=== PATIENT | male | born 1955 | race Caucasian/White ===

== ENCOUNTER 2018-02-25 12:47 | Emergency (ER) | payer SELFPAY ==
[~2018-02-25] VITALS: Ht 177.8 cm; Wt 93.9 kg
[~2018-02-25 12:47] MED LIST: MOME15CR TP; NAPR220C11 PO; PRD20T PO
--- OUTSIDE RECORDS SUMMARY | 2018-02-25 12:51 | XMS REPORT ---
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
--- OUTSIDE RECORDS SUMMARY | 2018-02-25 12:51 | XMS REPORT ---
Author Author GLORIA GRANADOS [facility] Address [address] [place] [address] Care Team Providers Care Certified Prosthetist Vice President Name Role Phone GLORIA GRANADOS Unavailable PROBLEMS Type Condition ICD9-CM Code [id number] Code Onset Dates Condition Status SNOMED Code Problem Bronchitis J40 Active 60489788 Problem Fatigue, unspecified type R53.83 Active 46744219 Problem Depression F32.9 Active 10607325 Problem Male reproductive system disorder N50.9 Active 894456112 Problem Essential hypertension I10 Active 60834031 Problem Arthritis M19.90 Active 2265019 ALLERGIES No Information SOCIAL HISTORY Never Assessed PLAN OF CARE VITAL SIGNS MEDICATIONS Medication Instructions Dosage Frequency Start Date End Date Duration Status Lisinopril 10 mg Orally Once a day take 1 tablet by Oral route 1 time per day Take in am 24h Aug, 30 days Active RESULTS No Results PROCEDURES No Known procedures IMMUNIZATIONS No Known Immunizations MEDICAL (GENERAL) HISTORY Type Description Date Medical History hypertension Medical History Hypertension Surgical History orthopedic surgery left thumb rebuilt Surgical History shoulder arthroscopy 05/2015 Hospitalization History for surgeries only
--- OUTSIDE RECORDS SUMMARY | 2018-02-25 12:51 | XMS REPORT ---
Author Author ALFRED JERONIMO [facility] Address [address] [place] [address] Care Team Providers Care Diathermy Equipment Repairer Name Role Phone ALFRED JERONIMO Unavailable PROBLEMS Type Condition ICD9-CM Code AMY78-[id number] Code Onset Dates Condition Status SNOMED Code Problem Bronchitis J40 Active 46639937 Problem Fatigue, unspecified type R53.83 Active 98617727 Problem Depression F32.9 Active 26415340 Problem Male reproductive system disorder N50.9 Active 426329760 Problem Essential hypertension I10 Active 00562202 Problem Arthritis M19.90 Active 3756459 ALLERGIES Substance Reaction Event Type Date Status Sulfamethoxazole-Trimethoprim Unknown Drug Allergy November, Active Penicillin V Potassium Unknown Drug Allergy November, Active Erythromycin Unknown Drug Allergy November, Active SOCIAL HISTORY Never Assessed PLAN OF CARE VITAL SIGNS Height 70 in 2016-11-28 Weight 205.3 lbs 2016-11-28 Temperature 98.5 degrees Fahrenheit 2016-11-28 Heart Rate 100 bpm 2016-11-28 Respiratory Rate 2016-11-28 BMI 29.45 kg/m2 2016-11-28 Blood pressure systolic 142 mmHg 2016-11-28 Blood pressure diastolic 86 mmHg 2016-11-28 MEDICATIONS Medication Instructions Dosage Frequency Start Date End Date Duration Status Lisinopril 10 MG Orally Once a day take 1 tablet by Oral route 1 time per day Take in am 24h 90 days Active Promethazine-Codeine 6.25-10 MG/5ML Orally every 6 hrs 5 ml as needed 6h November, Active Naproxen 500 mg Orally every 12 hrs 1 tablet as needed 12h November, Active Indomethacin 50 mg Orally Twice a day 1 capsule with food or milk 12h Sep, Feb, 30 day(s) Active Clobetasol Propionate 0.05 % Externally Twice a day 1 application to affected area 12h Sep, Active Doxycycline Hyclate 100 mg Orally every 12 hrs 1 capsule 12November, Dec, 10 days Active RESULTS No Results PROCEDURES No Known procedures IMMUNIZATIONS No Known Immunizations MEDICAL (GENERAL) HISTORY Type Description Date Medical History hypertension Medical History Hypertension Surgical History orthopedic surgery left thumb rebuilt Surgical History shoulder arthroscopy 05/2015 Hospitalization History for surgeries only
--- OUTSIDE RECORDS SUMMARY | 2018-02-25 12:51 | XMS REPORT ---
Author GLORIA Mullins [facility] eClinical[employer] Address Unknown Phone Unavailable Care Team Providers Care Car Examiner Name Role Phone GLORIA GRANADOS CP Unavailable Allergies, Adverse Reactions, Alerts Substance Reaction Event Type Sulfamethoxazole-Trimethoprim Info Not Available Drug Allergy Penicillin V Potassium Info Not Available Drug Allergy Erythromycin Info Not Available Drug Allergy Problems Problem Type Condition Code Onset Dates Condition Status Problem Arthritis M19.90 Active Problem Depression F32.9 Active Problem Essential hypertension I10 Active Assessment Depression F32.9 Active Assessment Essential hypertension I10 Active Assessment Arthritis M19.90 Active Medications Medication Code System Code Instructions Start Date End Date Status Dosage Naproxen [facility] [address]-95 500 MG Orally every 12 hrs prn Jul 09, 2015 1 tablet as needed Hydrocodone-Acetaminophen [facility] [address]-91 7.5-325 MG Orally every 6 hrs 1 tablet as needed Remeron SolTab [facility] [address]-25 15 MG Orally Once a day at bedtime December 1 tablet on the tongue and allow to dissolve before bedtime in the evening Lisinopril [facility] [address]-99 10 MG Orally Once a day Sep 01, 2014 take 1 tablet by Oral route 1 time per day Take in am Tylenol/Codeine #[address] [facility] [address]-75 300-30 MG Orally every 6 hrs 1 tablet as needed Procedures Procedure Coding System Code Date LIPID PANEL CPT-4 53228 Jul 09, 2015 Office Visit, Est Pt., Level 3 CPT-4 89318 Jul 09, 2015 COMPREHEN METABOLIC PANEL CPT-4 28491 Jul 09, 2015 VENIPUNCT, ROUTINE* CPT-4 95751 Jul 09, 2015 Vital Signs Date/Time: Jul 09, 2015 Temperature 97.4 F Weight 188.9 lbs Height 70 in BMI 27.10 Index Blood Pressure Diastolic 86 mmHg Blood Pressure Systolic 132 mmHg Cardiac Monitoring Heart Rate 86 bpm Results Name Result Date Reference Range Unit Abnormality Flag LIPID PANEL ----LDL Cholesterol Calc 113 72222826 0-99 mg/dL H ----Cholesterol, Total 194 19035827 100-199 mg/dL ----Triglycerides 149 11655970 0-149 mg/dL ----HDL Cholesterol 51 53201101 >39 mg/dL ----VLDL Cholesterol Juan 30 75159715 5-40 mg/dL CMP ----Sodium, Serum 139 79493278 134-144 mmol/L ----BUN/Creatinine Ratio 18 53006609 10-22 ----Chloride, Serum 98 30842178 97-108 mmol/L ----Potassium, Serum 4.5 59993890 3.5-5.2 mmol/L ----Calcium, Serum 9.9 90836530 8.6-10.2 mg/dL ----Protein, Total, Serum 7.6 30745323 6.0-8.5 g/dL ----Carbon Dioxide, Total 26 67537292 18-29 mmol/L ----A/G Ratio 1.5 74897460 1.1-2.5 ----eGFR If NonAfricn Am 96 26887511 >59 mL/min/1.73 ----Bilirubin, Total 0.3 13891008 0.0-1.2 mg/dL ----eGFR If Africn Am 111 29313141 >59 mL/min/1.73 ----BUN 15 43389547 8-27 mg/dL ----Albumin, Serum 4.6 12169979 3.6-4.8 g/dL ----Globulin, Total 3.0 82625881 1.5-4.5 g/dL ----Creatinine, Serum 0.82 18288653 0.76-1.27 mg/dL ----ALT (SGPT) 35 86208898 0-44 IU/L ----Glucose, Serum 87 64418739 65-99 mg/dL ----Alkaline Phosphatase, S 96 97119575 39-117 IU/L ----AST (SGOT) 24 [id number] 0-40 IU/L Summary Purpose eClinicalWorks Submission
--- OUTSIDE RECORDS SUMMARY | 2018-02-25 12:51 | XMS REPORT ---
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 Active 395500487 Problem Essential hypertension I10 Active 46036460 Problem Arthritis M19.90 Active 9599580 ALLERGIES No Information ENCOUNTERS Encounter Location Date Diagnosis [facility] [address] [address] Mar, Bronchitis J40 [facility] [address] [address] Feb, Essential hypertension I10 and Bronchitis J40 [facility] [address] [address] Dec, [facility] [address] [address] November, Acute non-recurrent maxillary sinusitis J01.00 [facility] [address] [address] Sep, [facility] [address] [address] Sep, Essential hypertension I10 ; Arthritis M19.90 ; Depression F32.9 ; Fatigue, unspecified type R53.83 ; Eczema, dyshidrotic L30.1 and Chronic cough R05 [facility] [address] [address] 13 Aug, 2016 Essential hypertension I10 [facility] [id number] [place] [address] Jun, Essential hypertension I10 ; Arthritis M19.90 and Depression F32.9 [facility] [id number] [place] [address] 18 Mar, 2015 Sinusitis 473.9 [facility] [id number] [place] [address] 30 Dec, 2014 Eczema 692.9 ; Hypertension 401.9 and Anger 799.29 [facility] [id number] [place] [address] Dec, Contact dermatitis 692.9 [facility] [id number] [place] [address] 14 Oct, 2014 [facility] [id number] [place] [address] Oct, [facility] [id number] [place] [address] Aug, [facility] [id number] [place] [address] Aug, [facility] [address] [place] [address] May, [facility] [id number] [place] [address] May, [facility] [address] [place] [address] Apr, [facility] [id number] [place] [address] Apr, [facility] [address] [address] Mar, [facility] [id number] [place] [address] Mar, [facility] [place] [facility] [address] [id number] [place] [address] 04 Mar, 2013 [facility] [place] [facility] [address] [id number] [place] [address] 04 Mar, 2013 [facility] [place] [facility] [address] [id number] [place] [address] 03 Mar, 2013 [facility] [place] [facility] [address] [id number] [place] [address] 03 Mar, 2013 [facility] [place] [facility] [address] [id number] [place] [address] Mar, [facility] [place] [facility] [address] [id number] [place] [address] Mar, [facility] [place] [facility] [address] [id number] [place] [address] Jan, [facility] [place] [facility] [address] [id number] [place] [address] Jan, [facility] [place] [facility] [address] [id number] [place] [address] November, [facility] [place] [facility] [address] [id number] [place] [address] November, [facility] [place] [facility] [address] [id number] [place] [address] 15 Oct, 2013 [facility] [place] [facility] [address] [id number] [place] [address] 15 Oct, 2013 [facility] [place] [facility] [address] [id number] [place] [address] Oct, [facility] [place] [facility] [address] [id number] [place] [address] Oct, [facility] [place] [facility] [address] [id number] [place] [address] 10 Oct, 2013 [facility] [place] [facility] [address] [id number] [place] [address] 10 Oct, 2013 [facility] [place] [facility] [address] [id number] [place] [address] Oct, [facility] [place] [facility] [address] [id number] [place] [address] Oct, [facility] [place] [facility] [address] [id number] [place] [address] Oct, [facility] [place] [facility] [address] [id number] [place] [address] Oct, [facility] [place] [facility] [address] [id number] [place] [address] Sep, [facility] [place] [facility] [address] [id number] [place] [address] Sep, [facility] [place] [facility] [address] [id number] [place] [address] Sep, [facility] [place] [facility] [address] [id number] [place] [address] Sep, [facility] [place] [facility] [address] [id number] [place] [address] Sep, [facility] [place] [facility] [address] [facility] [id number] [place] [address] Sep, [facility] [place] [facility] [address] [id number] [place] [address] Sep, [facility] [place] [facility] [address] [id number] [place] [address] Sep, [facility] [place] [facility] [address] [id number] [place] [address] Sep, [facility] [place] [facility] [address] [id number] [place] [address] Sep, [facility] [place] [facility] [address] [id number] [place] [address] Aug, [facility] [place] [facility] [address] [id number] [place] [address] 28 Aug, 2013 [facility] [place] [facility] [address] [id number] [place] [address] 17 Mar, 2012 [facility] [place] [facility] [address] [id number] [place] [address]- [address] 16 Mar, 2012 [facility] [place] [facility] [address] [id number] [place] [address] 13 Mar, 2012 [facility] [place] [facility] [address] [id number] [place] [address]- [address] 05 Mar, 2012 [facility] [place] [facility] [address] [id number] [place] [address] 04 Mar, 2013 [facility] [address] [id number] [place] [address] Dec, [facility] [place] [facility] [address] [id number] [place] [address] Sep, [facility] [place] [facility] [address] [id number] [place] [address] Apr, [facility] [place] [facility] [address] [id number] [place] [address]- [address] Apr, [facility] [place] [facility] [address] [id number] [place] [address] Apr, [facility] [place] [facility] [address] [id number] [place] [address]- [address] Apr, [facility] [place] [facility] [address] [id number] [place] [address] November, [facility] [place] [facility] [address] [id number] [place] [address] November, [facility] [place] [facility] [address] [id number] [place] [address] Oct, [facility] [place] [facility] [address] [id number] [place] [address] November, [facility] [address] [facility] [id number] [address] Oct, [facility] [address] [facility] [id number] [address] Apr, [facility] [address] [facility] [id number] [address] Apr, [facility] [address] [facility] [id number] [address] Dec, IMMUNIZATIONS No Known Immunizations SOCIAL HISTORY Never Assessed REASON FOR VISIT Requesting referral PLAN OF CARE VITAL SIGNS MEDICATIONS No Known Medications RESULTS No Results PROCEDURES No Known procedures INSTRUCTIONS MEDICATIONS ADMINISTERED No Known Medications MEDICAL (GENERAL) HISTORY Type Description Date Medical History hypertension Medical History Hypertension Surgical History orthopedic surgery left thumb rebuilt Surgical History shoulder arthroscopy 05/2015 Hospitalization History for surgeries only
--- OUTSIDE RECORDS SUMMARY | 2018-02-25 12:51 | XMS REPORT ---
Author Author GLORIA GRANADOS [facility] Address [address] [place] [address] Care Team Providers Care Documentation Consultant Name Role Phone GLORIA GRANADOS Unavailable PROBLEMS Type Condition ICD9-CM Code [id number] Code Onset Dates Condition Status SNOMED Code Problem Bronchitis J40 Active 42127051 Problem Fatigue, unspecified type R53.83 Active 07222535 Problem Depression F32.9 Active 00388600 Problem Male reproductive system disorder N50.9 Active 530610955 Problem Essential hypertension I10 Active 40107121 Problem Arthritis M19.90 Active 3137807 ALLERGIES Substance Reaction Event Type Date Status Sulfamethoxazole-Trimethoprim Unknown Drug Allergy Sep, Active Penicillin V Potassium Unknown Drug Allergy Sep, Active Erythromycin Unknown Drug Allergy Sep, Active SOCIAL HISTORY Never Assessed PLAN OF CARE Activity Details Follow Up pending lab and xray Reason: VITAL SIGNS Height 70 in 2016-09-07 Weight 205.4 lbs 2016-09-07 Temperature 98.1 degrees Fahrenheit 2016-09-07 Heart Rate 92 bpm 2016-09-07 Respiratory Rate 22 2016-09-07 BMI 29.47 kg/m2 2016-09-07 Blood pressure systolic 144 mmHg 2016-09-07 Blood pressure diastolic 85 mmHg 2016-09-07 MEDICATIONS Medication Instructions Dosage Frequency Start Date End Date Duration Status Remeron SolTab 15 MG Orally Once a day at bedtime 1 tablet on the tongue and allow to dissolve before bedtime in the evening 30 day(s) Active Indomethacin 50 mg Orally Twice a day 1 capsule with food or milk h Sep, Feb, 30 day(s) Active Clobetasol Propionate 0.05 % Externally Twice a day 1 application to affected area 12h Sep, Active Lisinopril 10 MG Orally Once a day take 1 tablet by Oral route 1 time per day Take in am 24h 90 days Active RESULTS Name Result Date Reference Range TESTOSTERONE, FREE AND TOTAL 2016-09-07 Testosterone, Serum [id number] Comment: TSH 2016-09-07 TSH 1.950 0.450-4.500 CBC 2016-09-07 WBC 10.4 3.4-10.8 RBC 5.03 4.14-5.80 Hemoglobin 15.9 12.6-17.7 Hematocrit 47.0 37.5-51.0 MCV 93 79-97 MCH 31.6 26.6-33.0 MCHC 33.8 31.5-35.7 RDW 13.5 12.3-15.4 Platelets 283 150-379 Neutrophils 67 Lymphs 25 Monocytes 7 Eos 1 Basos 0 Immature Cells Neutrophils (Absolute) 6.8 1.4-7.0 Lymphs (Absolute) 2.6 0.7-3.1 Monocytes(Absolute) 0.8 0.1-0.9 Eos (Absolute) 0.1 0.0-0.4 Baso (Absolute) 0.0 0.0-0.2 Immature Granulocytes 0 Immature Grans (Abs) 0.0 0.0-0.1 NR Hematology Comments: CMP 2016-09-07 Glucose, Serum 75 65-99 BUN 10 8-27 Creatinine, Serum 1.00 0.76-1.27 eGFR If NonAfricn Am 81 >59 eGFR If Africn Am 93 >59 BUN/Creatinine Ratio 10 10-22 Sodium, Serum 139 134-144 Potassium, Serum 4.5 3.5-5.2 Chloride, Serum 98 96-106 Carbon Dioxide, Total 23 18-29 Calcium, Serum 9.7 8.6-10.2 Protein, Total, Serum 7.8 6.0-8.5 Albumin, Serum 4.7 3.6-4.8 Globulin, Total 3.1 1.5-4.5 A/G Ratio 1.5 1.1-2.5 Bilirubin, Total 0.4 0.0-1.2 Alkaline Phosphatase, S 99 39-117 AST (SGOT) 25 0-40 ALT (SGPT) 29 0-44 TESTOSTERONE, FREE AND TOTAL 2016-09-07 Testosterone, Serum [phone] Comment: Free Testosterone(Direct) 8.6 6.6-18.1 TSH 2016-09-07 TSH 1.950 0.450-4.500 CBC 2016-09-07 WBC 10.4 3.4-10.8 RBC 5.03 4.14-5.80 Hemoglobin 15.9 12.6-17.7 Hematocrit 47.0 37.5-51.0 MCV 93 79-97 MCH 31.6 26.6-33.0 MCHC 33.8 31.5-35.7 RDW 13.5 12.3-15.4 Platelets 283 150-379 Neutrophils 67 Lymphs 25 Monocytes 7 Eos 1 Basos 0 Neutrophils (Absolute) 6.8 1.4-7.0 Lymphs (Absolute) 2.6 0.7-3.1 Monocytes(Absolute) 0.8 0.1-0.9 Eos (Absolute) 0.1 0.0-0.4 Baso (Absolute) 0.0 0.0-0.2 Immature Granulocytes 0 Immature Grans (Abs) 0.0 0.0-0.1 CMP 2016-09-07 Glucose, Serum 75 65-99 BUN 10 8-27 Creatinine, Serum 1.00 0.76-1.27 eGFR If NonAfricn Am 81 >59 eGFR If Africn Am 93 >59 BUN/Creatinine Ratio 10 10-22 Sodium, Serum 139 134-144 Potassium, Serum 4.5 3.5-5.2 Chloride, Serum 98 96-106 Carbon Dioxide, Total 23 18-29 Calcium, Serum 9.7 8.6-10.2 Protein, Total, Serum 7.8 6.0-8.5 Albumin, Serum 4.7 3.6-4.8 Globulin, Total 3.1 1.5-4.5 A/G Ratio 1.5 1.1-2.5 Bilirubin, Total 0.4 0.0-1.2 Alkaline Phosphatase, S 99 39-117 AST (SGOT) 25 0-40 ALT (SGPT) 29 0-44 Xray : Chest (IN HOUSE) 2016-09-07 PROCEDURES Procedure Date Ordered Result Body Site COMPLETE CBC W/AUTO DIFF WBC September 07, 2016 ASSAY THYROID STIM HORMONE September 07, 2016 VENIPUNCT, ROUTINE* September 07, 2016 ASSAY OF TESTOSTERONE September 07, 2016 ASSAY OF TOTAL TESTOSTERONE September 07, 2016 CHEST X-RAY September 07, 2016 COMPREHEN METABOLIC PANEL September 07, 2016 IMMUNIZATIONS No Known Immunizations MEDICAL (GENERAL) HISTORY Type Description Date Medical History hypertension Medical History Hypertension Surgical History orthopedic surgery left thumb rebuilt Surgical History shoulder arthroscopy 05/2015 Hospitalization History for surgeries only
--- OUTSIDE RECORDS SUMMARY | 2018-02-25 12:52 | XMS REPORT | Continuity of Care Document ---
Author Author Replaced By [facility] Address Unknown Phone Unavailable Allergies Active Description Code Type Severity Reaction Onset Reported/Identified Relationship to Patient Clinical Status Yes erythromycin Drug Allergy N/ A N/A 09/02/2008 Yes Penicillins Drug Allergy N/A N/A 09/02/2008 Yes erythromycin Drug Allergy 09/02/2008 Yes Penicillins Drug Allergy 09/02/2008 Yes Penicillins [id number] Drug Allergy Severe COMA 01/28/2011 Yes erythromycin base [id number] Drug Allergy Moderate TONGUE SWELLING 2010 Yes Sulfa (Sulfonamide Antibiotics) [id number] Drug Allergy Mild HIVES 2010 Medications There is no data. Problems Date Dx Coded Attending Type Code Diagnosis Diagnosed By 01/22/2008 380.10 OTITIS EXTERNA - RIGHT EAR 01/22/2008 692.9 DERMATITIS 01/22/2008 727.43 GANGLION UNSPECIFIED 01/22/2008 380.10 OTITIS EXTERNA - RIGHT EAR 01/22/2008 692.9 DERMATITIS 01/22/2008 727.43 GANGLION UNSPECIFIED 01/22/2008 380.10 OTITIS EXTERNA - RIGHT EAR 01/22/2008 692.9 DERMATITIS 01/22/2008 727.43 GANGLION UNSPECIFIED 01/22/2008 SAKINA MACIEL APRN R 380.10 OTITIS EXTERNA - RIGHT EAR 01/22/2008 SAKINA MACIEL APRN R 692.9 DERMATITIS 01/22/2008 SAKINA MACIEL APRN R 727.43 GANGLION UNSPECIFIED 01/22/2008 OZZIE BONE DO 380.10 OTITIS EXTERNA - RIGHT EAR 01/22/2008 OZZIE BONE DO 692.9 DERMATITIS 01/22/2008 OZZIE BONE DO 727.43 GANGLION UNSPECIFIED 01/22/2008 SAKINA MACIEL APRN R 380.10 OTITIS EXTERNA - RIGHT EAR 01/22/2008 SAKINA MACIEL APRN R 692.9 DERMATITIS 01/22/2008 JANELL BAGGAGE CLERK, SAKINA R 727.43 GANGLION UNSPECIFIED 01/22/2008 JANELL BAGGAGE CLERK, SAKINA R 380.10 OTITIS EXTERNA - RIGHT EAR 01/22/2008 JANELL BAGGAGE CLERK, SAKINA R 692.9 DERMATITIS 01/22/2008 JANELL BAGGAGE CLERK, SAKINA R 727.43 GANGLION UNSPECIFIED 01/22/2008 RAJOTTE BAGGAGE CLERK, AZEEM A 380.10 OTITIS EXTERNA - RIGHT EAR 01/22/2008 RAJOTTE BAGGAGE CLERK, AZEEM A 692.9 DERMATITIS 01/22/2008 RAJOTTE BAGGAGE CLERK, AZEEM A 727.43 GANGLION UNSPECIFIED 01/22/2008 MADL BAGGAGE CLERK, GLORIA L 380.10 OTITIS EXTERNA - RIGHT EAR 01/22/2008 MADL BAGGAGE CLERK, GLORIA L 692.9 DERMATITIS 01/22/2008 MADL BAGGAGE CLERK, GLORIA L 727.43 GANGLION UNSPECIFIED 01/22/2008 MADL BAGGAGE CLERK, GLORIA L 380.10 OTITIS EXTERNA - RIGHT EAR 01/22/2008 MADL BAGGAGE CLERK, GLORIA L 692.9 DERMATITIS 01/22/2008 MADL BAGGAGE CLERK, GLORIA L 727.43 GANGLION UNSPECIFIED 01/22/2008 JANELL BAGGAGE CLERK, SAKINA R 380.10 OTITIS EXTERNA - RIGHT EAR 01/22/2008 JANELL BAGGAGE CLERK, SAKINA R 692.9 DERMATITIS 01/22/2008 JANELL BAGGAGE CLERK, SAKINA R 727.43 GANGLION UNSPECIFIED 03/11/2008 473.9 SINUSITIS ( CHRONIC) 03/11/2008 473.9 SINUSITIS ( CHRONIC) 03/11/2008 473.9 SINUSITIS ( CHRONIC) 03/11/2008 JANELL BAGGAGE CLERK, SAKINA R 473.9 SINUSITIS (CHRONIC) 03/11/2008 OZZIE BONE DO 473.9 SINUSITIS (CHRONIC) 03/11/2008 JANELL BAGGAGE CLERK, SAKINA R 473.9 SINUSITIS (CHRONIC) 03/11/2008 JANELL BAGGAGE CLERK, SAKINA R 473.9 SINUSITIS (CHRONIC) 03/11/2008 RAJOTTE BAGGAGE CLERK, AZEEM A 473.9 SINUSITIS (CHRONIC) 03/11/2008 MADL BAGGAGE CLERK, GLORIA L 473.9 SINUSITIS (CHRONIC) 03/11/2008 MADL BAGGAGE CLERK, GLORIA L 473.9 SINUSITIS (CHRONIC) 03/11/2008 JANELL BAGGAGE CLERK, SAKINA R 473.9 SINUSITIS (CHRONIC) 09/02/2008 729.5 pain in the hands 09/02/2008 729.5 pain in the hands 09/02/2008 729.5 pain in the hands 09/02/2008 JANELL BAGGAGE CLERK, SAKINA R 729.5 pain in the hands 09/02/2008 BONE DO, OZZIE K 729.5 pain in the hands 09/02/2008 JANELL BAGGAGE CLERK, SAKINA R 729.5 pain in the hands 09/02/2008 JANELL BAGGAGE CLERK, SAKINA R 729.5 pain in the hands 09/02/2008 RAJOTTE BAGGAGE CLERK, AZEEM A 729.5 pain in the hands 09/02/2008 MADL BAGGAGE CLERK, GLORIA L 729.5 pain in the hands 09/02/2008 MADL BAGGAGE CLERK, GLORIA L 729.5 pain in the hands 09/02/2008 JANELL BAGGAGE CLERK, SAKINA R 729.5 pain in the hands 12/22/2008 780.2 SYNCOPE AND COLLAPSE 12/22/2008 780.2 SYNCOPE AND COLLAPSE 12/22/2008 780.2 SYNCOPE AND COLLAPSE 12/22/2008 JANELL BAGGAGE CLERK, SAKINA R 780.2 SYNCOPE AND COLLAPSE 12/22/2008 BONE DO, OZZIE K 780.2 SYNCOPE AND COLLAPSE 12/22/2008 JANELL BAGGAGE CLERK, SAKINA R 780.2 SYNCOPE AND COLLAPSE 12/22/2008 JANELL BAGGAGE CLERK, SAKINA R 780.2 SYNCOPE AND COLLAPSE 12/22/2008 TOBYE BAGGAGE CLERK, AZEEM A 780.2 SYNCOPE AND COLLAPSE 12/22/2008 MADL BAGGAGE CLERK, GLORIA L 780.2 SYNCOPE AND COLLAPSE 12/22/2008 MADL BAGGAGE CLERK, GLORIA L 780.2 SYNCOPE AND COLLAPSE 12/22/2008 JANELL BAGGAGE CLERK, SAKINA R 780.2 SYNCOPE AND COLLAPSE 02/10/2009 692.6 CONTACT DERMATITIS DUE TO PLANTS POISON JOSE 02/10/2009 780.4 VERTIGO 02/10/2009 692.6 CONTACT DERMATITIS DUE TO PLANTS POISON JOSE 02/10/2009 780.4 VERTIGO 02/10/2009 692.6 CONTACT DERMATITIS DUE TO PLANTS POISON JOSE 02/10/2009 780.4 VERTIGO 02/10/2009 JANELL BAGGAGE CLERK, SAKINA R 692.6 CONTACT DERMATITIS DUE TO PLANTS POISON JOSE 02/10/2009 JANELL BAGGAGE CLERK, SAKINA R 780.4 VERTIGO 02/10/2009 BONE DO, OZZIE K 692.6 CONTACT DERMATITIS DUE TO PLANTS POISON JOSE 02/10/2009 BONE DO, OZZIE K 780.4 VERTIGO 02/10/2009 JANELL BAGGAGE CLERK, SAKINA R 692.6 CONTACT DERMATITIS DUE TO PLANTS POISON JOSE 02/10/2009 JANELL ROBERTN, SAKINA R 780.4 VERTIGO 02/10/2009 JANELL BAGGAGE CLERK, SAKINA R 692.6 CONTACT DERMATITIS DUE TO PLANTS POISON JOSE 02/10/2009 JANELL ROBERTN, SAKINA R 780.4 VERTIGO 02/10/2009 TOBYE LEVON AZEEM A 692.6 CONTACT DERMATITIS DUE TO PLANTS POISON JOSE 02/10/2009 TOBYE LEVON AZEEM A 780.4 VERTIGO 02/10/2009 INEZL BAGGAGE CLERK, GLORIA L 692.6 CONTACT DERMATITIS DUE TO PLANTS POISON JOSE 02/10/2009 MADL BAGGAGE CLERK, GLORIA L 780.4 VERTIGO 02/10/2009 MADL BAGGAGE CLERK, GLORIA L 692.6 CONTACT DERMATITIS DUE TO PLANTS POISON JOSE 02/10/2009 MADL BAGGAGE CLERK, GLORIA L 780.4 VERTIGO 02/10/2009 JANELL DOS SANTOS, SAKINA R 692.6 CONTACT DERMATITIS DUE TO PLANTS POISON JOSE 02/10/2009 JANELL DOS SANTOS, SAKINA R 780.4 VERTIGO 04/30/2009 995.3 ALLERGY UNSPECIFIED NOT ELSEWHERE CLASSIFIED 04/30/2009 995.3 ALLERGY UNSPECIFIED NOT ELSEWHERE CLASSIFIED 04/30/2009 995.3 ALLERGY UNSPECIFIED NOT ELSEWHERE CLASSIFIED 04/30/2009 JANELL DOS SANTOS SAKINA R 995.3 ALLERGY UNSPECIFIED NOT ELSEWHERE CLASSIFIED 04/30/2009 BONE DO, OZZIE K 995.3 ALLERGY UNSPECIFIED NOT ELSEWHERE CLASSIFIED 04/30/2009 JANELL DOS SANTOS SAKINA R 995.3 ALLERGY UNSPECIFIED NOT ELSEWHERE CLASSIFIED 04/30/2009 JANELL DOS SANTOS SAKINA R 995.3 ALLERGY UNSPECIFIED NOT ELSEWHERE CLASSIFIED 04/30/2009 REJI DOS SANTOS AZEEM A 995.3 ALLERGY UNSPECIFIED NOT ELSEWHERE CLASSIFIED 04/30/2009 MADL BAGGAGE CLERK, GLORIA L 995.3 ALLERGY UNSPECIFIED NOT ELSEWHERE CLASSIFIED 04/30/2009 MADL BAGGAGE CLERK, GLORIA L 995.3 ALLERGY UNSPECIFIED NOT ELSEWHERE CLASSIFIED 04/30/2009 JANELL BAGGAGE CLERK, SAKINA R 995.3 ALLERGY UNSPECIFIED NOT ELSEWHERE CLASSIFIED 05/05/2009 300.02 GENERALIZED ANXIETY DISORDER 05/05/2009 696.1 PSORIASIS 05/05/2009 780.52 INSOMNIA UNSPECIFIED 05/05/2009 300.02 GENERALIZED ANXIETY DISORDER 05/05/2009 696.1 PSORIASIS 05/05/2009 780.52 INSOMNIA UNSPECIFIED 05/05/2009 300.02 GENERALIZED ANXIETY DISORDER 05/05/2009 696.1 PSORIASIS 05/05/2009 780.52 INSOMNIA UNSPECIFIED 05/05/2009 JANELL BAGGAGE CLERK, SAKINA R 300.02 GENERALIZED ANXIETY DISORDER 05/05/2009 JANELL BAGGAGE CLERK, SAKINA R 696.1 PSORIASIS 05/05/2009 JANELL BAGGAGE CLERK, SAKINA R 780.52 INSOMNIA UNSPECIFIED 05/05/2009 BONE DO, OZZIE K 300.02 GENERALIZED ANXIETY DISORDER 05/05/2009 BONE DO, OZZIE K 696.1 PSORIASIS 05/05/2009 BONE DO, OZZIE K 780.52 INSOMNIA UNSPECIFIED 05/05/2009 JANELL BAGGAGE CLERK, SAKINA R 300.02 GENERALIZED ANXIETY DISORDER 05/05/2009 JANELL BAGGAGE CLERK, SAKINA R 696.1 PSORIASIS 05/05/2009 JANELL BAGGAGE CLERK, SAKINA R 780.52 INSOMNIA UNSPECIFIED 05/05/2009 JANELL BAGGAGE CLERK, SAKINA R 300.02 GENERALIZED ANXIETY DISORDER 05/05/2009 JANELL BAGGAGE CLERK, SAKINA R 696.1 PSORIASIS 05/05/2009 JANELL BAGGAGE CLERK, SAKINA R 780.52 INSOMNIA UNSPECIFIED 05/05/2009 RAJOTTE BAGGAGE CLERK, AZEEM A 300.02 GENERALIZED ANXIETY DISORDER 05/05/2009 RAJOTTE BAGGAGE CLERK, AZEEM A 696.1 PSORIASIS 05/05/2009 RAJOTTE BAGGAGE CLERK, AZEEM A 780.52 INSOMNIA UNSPECIFIED 05/05/2009 MADL BAGGAGE CLERK, GLORIA L 300.02 GENERALIZED ANXIETY DISORDER 05/05/2009 MADL BAGGAGE CLERK, GLORIA L 696.1 PSORIASIS 05/05/2009 MADL BAGGAGE CLERK, GLORIA L 780.52 INSOMNIA UNSPECIFIED 05/05/2009 MADL BAGGAGE CLERK, GLORIA L 300.02 GENERALIZED ANXIETY DISORDER 05/05/2009 DARWIN DOS SANTOS, GLORIA L 696.1 PSORIASIS 05/05/2009 DARWIN BAGGAGE CLERKVIPUL RobledoA L 780.52 INSOMNIA UNSPECIFIED 05/05/2009 JANELL DOS SANTOS SAKINA R 300.02 GENERALIZED ANXIETY DISORDER 05/05/2009 JANELL DOS SANTOS, SAKINA R 696.1 PSORIASIS 05/05/2009 JANELL DOS SANTOS SAKINA R 780.52 INSOMNIA UNSPECIFIED 10/22/2009 388.70 EARACHE RIGHT EAR 10/22/2009 799.81 changed sexual interest (libido): decreased 10/22/2009 388.70 EARACHE RIGHT EAR 10/22/2009 799.81 changed sexual interest (libido): decreased 10/22/2009 388.70 EARACHE RIGHT EAR 10/22/2009 799.81 changed sexual interest (libido): decreased 10/22/2009 JANELL DOS SANTOS SAKINA R 388.70 EARACHE RIGHT EAR 10/22/2009 JANELL DOS SANTOS SAKINA R 799.81 changed sexual interest (libido): decreased 10/22/2009 BONE DO, OZZIE K 388.70 EARACHE RIGHT EAR 10/22/2009 BONE DO, OZZIE K 799.81 changed sexual interest (libido): decreased 10/22/2009 JANELL DOS SANTOS SAKINA R 388.70 EARACHE RIGHT EAR 10/22/2009 JANELL DOS SANTOS SAKINA R 799.81 changed sexual interest (libido): decreased 10/22/2009 JANELL DOS SANTOS SAKINA R 388.70 EARACHE RIGHT EAR 10/22/2009 JANELL DOS SANTOS SAKINA R 799.81 changed sexual interest (libido): decreased 10/22/2009 REJI DOS SANTOS, AZEEM A 388.70 EARACHE RIGHT EAR 10/22/2009 RAJOTTE BAGGAGE CLERK, AZEEM A 799.81 changed sexual interest (libido): decreased 10/22/2009 FLO GRANADOS APRNNYA L 388.70 EARACHE RIGHT EAR 10/22/2009 FLO GRANADOS APRNNYA L 799.81 changed sexual interest (libido): decreased 10/22/2009 VIPUL GRANADOS APRNA L 388.70 EARACHE RIGHT EAR 10/22/2009 FLO GRANADOS APRNNYA L 799.81 changed sexual interest (libido): decreased 10/22/2009 SONYA MACIEL APRNINA R 388.70 EARACHE RIGHT EAR 10/22/2009 JANELL DOS SANTOS SAKINA R 799.81 changed sexual interest (libido): decreased 11/16/2009 305.1 NONDEPENDENT ABUSE OF DRUGS, TOBACCO USE DISORDER 11/16/2009 401.1 BENIGN ESSENTIAL HYPERTENSION 11/16/2009 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 11/16/2009 305.1 NONDEPENDENT ABUSE OF DRUGS, TOBACCO USE DISORDER 11/16/2009 401.1 BENIGN ESSENTIAL HYPERTENSION 11/16/2009 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 11/16/2009 305.1 NONDEPENDENT ABUSE OF DRUGS, TOBACCO USE DISORDER 11/16/2009 401.1 BENIGN ESSENTIAL HYPERTENSION 11/16/2009 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 11/16/2009 SAKINA MACIEL APRN R 305.1 NONDEPENDENT ABUSE OF DRUGS, TOBACCO USE DISORDER 11/16/2009 SAKINA MACIEL APRN R 401.1 BENIGN ESSENTIAL HYPERTENSION 11/16/2009 JANELL DOS SANTOS SAKINA R 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 11/16/2009 BONE DO, OZZIE K 305.1 NONDEPENDENT ABUSE OF DRUGS, TOBACCO USE DISORDER 11/16/2009 BONE DO, OZZIE K 401.1 BENIGN ESSENTIAL HYPERTENSION 11/16/2009 BNOE DO, OZZIE K 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 11/16/2009 SONYA MACIEL APRNINA R 305.1 NONDEPENDENT ABUSE OF DRUGS, TOBACCO USE DISORDER 11/16/2009 SONYA MACIEL APRNINA R 401.1 BENIGN ESSENTIAL HYPERTENSION 11/16/2009 JANELL DOS SANTOS SAKINA R 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 11/16/2009 SONYA MACIEL APRNINA R 305.1 NONDEPENDENT ABUSE OF DRUGS, TOBACCO USE DISORDER 11/16/2009 JANELL DOS SANTOS SAKINA R 401.1 BENIGN ESSENTIAL HYPERTENSION 11/16/2009 JANELL DOS SANTOS SAKINA R 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1 BENIGN ESSENTIAL HYPERTENSION 11/16/2009 MADL BAGGAGE CLERK, GLORIA L 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 11/16/2009 JANELL ROBERTN, SAKINA R 305.1 NONDEPENDENT ABUSE OF DRUGS, TOBACCO USE DISORDER 11/16/2009 JANELL ROBERTN, SAKINA R 401.1 BENIGN ESSENTIAL HYPERTENSION 11/16/2009 JANELL DOS SANTOS, SAKINA R 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 11/02/2011 477.9 RHINITIS 11/02/2011 477.9 RHINITIS 11/02/2011 477.9 RHINITIS 11/02/2011 JANELL DOS SANTOS, SAKINA R 477.9 RHINITIS 11/02/2011 BONE DO, OZZIE K 477.9 RHINITIS 11/02/2011 JANELL DOS SANTOS, SAKINA R 477.9 RHINITIS 11/02/2011 JANELL DOS SANTOS, SAKINA R 477.9 RHINITIS 11/02/2011 SANDYOTTRoscoe DOS SANTOS, AZEEM A 477.9 RHINITIS 11/02/2011 DARWIN BAGGAGE CLERK, GLORIA L 477.9 RHINITIS 11/02/2011 MADLuan BAGGAGE CLERK, GLORIA L 477.9 RHINITIS 11/02/2011 JANELL DOS SANTOS, SAKINA R 477.9 RHINITIS 05/08/2012 380.22 OTHER ACUTE OTITIS EXTERNA 05/08/2012 380.22 OTHER ACUTE OTITIS EXTERNA 05/08/2012 380.22 OTHER ACUTE OTITIS EXTERNA 05/08/2012 JANELL DOS SANTOS SAKINA R 380.22 OTHER ACUTE OTITIS EXTERNA 05/08/2012 BONE DO, OZZIE K 380.22 OTHER ACUTE OTITIS EXTERNA 05/08/2012 JANELL DOS SANTOS SAKINA R 380.22 OTHER ACUTE OTITIS EXTERNA 05/08/2012 JANELL BAGGAGE CLERK, SAKINA R 380.22 OTHER ACUTE OTITIS EXTERNA 05/08/2012 TOBYE BAGGAGE CLERK, AZEEM A 380.22 OTHER ACUTE OTITIS EXTERNA 05/08/2012 DARWIN BAGGAGE CLERK, GOLRIA L 380.22 OTHER ACUTE OTITIS EXTERNA 05/08/2012 INEZL BAGGAGE CLERK, GLORIA L 380.22 OTHER ACUTE OTITIS EXTERNA 05/08/2012 JANELL DOS SANTOS SAKINA R 380.22 OTHER ACUTE OTITIS EXTERNA 10/05/2012 461.9 SINUSITIS ACUTE 10/05/2012 461.9 SINUSITIS ACUTE 10/05/2012 461.9 SINUSITIS ACUTE 10/05/2012 JANELL DOS SANTOS, SAKINA R 461.9 SINUSITIS ACUTE 10/05/2012 BONE DO, OZZIE K 461.9 SINUSITIS ACUTE 10/05/2012 JANELL DOS SANTOS SAKINA R 461.9 SINUSITIS ACUTE 10/05/2012 JANELL DOS SANTOS SAKINA R 461.9 SINUSITIS ACUTE 10/05/2012 PB MENDOZA APRNYL A 461.9 SINUSITIS ACUTE 10/05/2012 DARWIN DOS SANTOS GLORIA L 461.9 SINUSITIS ACUTE 10/05/2012 DARWIN BAGGAGE CLERK, GLORIA L 461.9 SINUSITIS ACUTE 10/05/2012 JANELL DOS SANTOS SAKINA R 461.9 SINUSITIS ACUTE 12/27/2012 380.4 CERUMEN IMPACTION 12/27/2012 380.4 CERUMEN IMPACTION 12/27/2012 JANELL DOS SANTOS SAKINA R 380.4 CERUMEN IMPACTION 12/27/2012 BONE OZZIE SANDOVAL K 380.4 CERUMEN IMPACTION 12/27/2012 JANELL DOS SANTOS SAKINA R 380.4 CERUMEN IMPACTION 12/27/2012 JANELL DOS SANTOS SAKINA R 380.4 CERUMEN IMPACTION 12/27/2012 REJI DOS SANTOS AZEEM A 380.4 CERUMEN IMPACTION 12/27/2012 ISSA GRANADOS APRNWNYA L 380.4 CERUMEN IMPACTION 12/27/2012 DARWIN DOS SANTOS GLORIA L 380.4 CERUMEN IMPACTION 12/27/2012 JANELL DOS SANTOS SAKINA R 380.4 CERUMEN IMPACTION 03/13/2013 719.41 PAIN IN JOINT INVOLVING SHOULDER REGION 03/13/2013 SONYA MACIEL APRNINA R 719.41 PAIN IN JOINT INVOLVING SHOULDER REGION 03/13/2013 OZZIE BONE DO 719.41 PAIN IN JOINT INVOLVING SHOULDER REGION 03/13/2013 SONYA MACIEL APRNINA R 719.41 PAIN IN JOINT INVOLVING SHOULDER REGION 03/13/2013 SONYA MACIEL APRNINA R 719.41 PAIN IN JOINT INVOLVING SHOULDER REGION 03/13/2013 PB MENDOZA APRNYL A 719.41 PAIN IN JOINT INVOLVING SHOULDER REGION 03/13/2013 ISSA GRANADOS APRNWNYA L 719.41 PAIN IN JOINT INVOLVING SHOULDER REGION 03/13/2013 ISSA GRANADOS APRNWNYA L 719.41 PAIN IN JOINT INVOLVING SHOULDER REGION 03/13/2013 SONYA MACIEL APRNINA R 719.41 PAIN IN JOINT INVOLVING SHOULDER REGION 09/20/2013 AZEEM COSTELLO INTERLOCKING PAVEMENT INSTALLER Ot 727.04 RADIAL STYLOID TENOSYNOV 09/20/2013 AZEEM COSTELLO INTERLOCKING PAVEMENT INSTALLER Ot V57.21 ENCOUNTER FOR OCCUPATIONAL THERAPY 10/11/2013 SONYA MAICEL APRNINA R 782.1 RASH 10/11/2013 SONYA MACIEL APRNINA R 782.1 RASH 10/11/2013 PB MENDOZA APRNYL A 782.1 RASH 10/11/2013 ISSA GRANADOS APRNWNYA L 782.1 RASH 10/11/2013 ISSA GRANADOS APRNWNYA L 782.1 RASH 10/11/2013 SONYA MACIEL APRNINA R 782.1 RASH 10/22/2013 SONYA MACIEL APRNINA R 477.0 ALLERGIC RHINITIS DUE TO POLLEN 10/22/2013 PB MENDOZA APRNYL A 477.0 ALLERGIC RHINITIS DUE TO POLLEN 10/22/2013 DARWIN DOS SANTOS, GLORIA L 477.0 ALLERGIC RHINITIS DUE TO POLLEN 10/22/2013 ISSA GRANADOS APRNWNYA L 477.0 ALLERGIC RHINITIS DUE TO POLLEN 10/22/2013 JANELL DOS SANTOS SAKINA R 477.0 ALLERGIC RHINITIS DUE TO POLLEN 03/11/2014 ISSA GRANADOS APRNWNYA L 302.72 PSYCHOSEXUAL DYSFUNCTION WITH INHIBITED SEXUAL EXCITEMENT 03/11/2014 FLO GRANADOS APRNNYA L 381.01 ACUTE SEROUS OTITIS MEDIA 03/11/2014 GLORIA GRANADOS APRN 302.72 PSYCHOSEXUAL DYSFUNCTION WITH INHIBITED SEXUAL EXCITEMENT 03/11/2014 GLORIA GRANADOS APRN 381.01 ACUTE SEROUS OTITIS MEDIA 03/11/2014 SAKINA MACIEL APRN 302.72 PSYCHOSEXUAL DYSFUNCTION WITH INHIBITED SEXUAL EXCITEMENT 03/11/2014 SAKINA MACIEL APRN R 381.01 ACUTE SEROUS OTITIS MEDIA 07/20/2017 SAKINA MACIEL APRN Ot 719.41 JOINT PAIN-SHLDER Procedures Code Description [place] [address] EAR LAVAGE ONE OR BOTH EARS 12/27/2012 40589 ROUTINE VENIPUNCTURE 03/13/2013 77259 LIVER PANEL (LFT) 03/14/2013 50796 MRI EXTREMITY JOINT, UPPER LEFT, W & W/O CONTRAST 03/15/2013 66214 ROUTINE VENIPUNCTURE 09/16/2013 47952 CBC 09/16/2013 [id number] GFR CALC (RESULT ONLY) 09/16/2013 12080 CMP 09/16/2013 47983 LIPID PANEL 09/16/2013 93415 TESTOSTERONE TOTAL MALES 09/16/2013 92339 TSH 09/16/2013 74286 THERAPUTIC INJ SQ/IM 10/22/2013 J3301 KENALOG INJ, PER 10 MG 10/22/2013 J1030 DEPO MEDROL 40 MG INJ 10/22/2013 30330 ROUTINE VENIPUNCTURE 03/11/2014 15866 LIPID PANEL 03/11/2014 99865 CMP 03/11/2014 [id number] GFR CALC (RESULT ONLY) 03/11/2014 Results Test Result Range CBC With Differential/Platelet - 09/07/16 16:29 WBC 10.4 x10E3/uL 3.4-10.8 RBC 5.03 x10E6/uL 4.14-5.80 Hemoglobin 15.9 g/dL 12.6-17.7 Hematocrit 47.0 % 37.5-51.0 MCV 93 fL 79-97 MCH 31.6 pg 26.6-33.0 MCHC 33.8 g/dL 31.5-35.7 RDW 13.5 % 12.3-15.4 Platelets 283 x10E3/uL 150-379 Neutrophils 67 % Lymphs 25 % Monocytes 7 % Eos 1 % Basos 0 % Neutrophils (Absolute) 6.8 x10E3/uL 1.4-7.0 Lymphs (Absolute) 2.6 x10E3/uL 0.7-3.1 Monocytes(Absolute) 0.8 x10E3/uL 0.1-0.9 Eos (Absolute) 0.1 x10E3/uL 0.0-0.4 Baso (Absolute) 0.0 x10E3/uL 0.0-0.2 Immature Granulocytes 0 % Immature Grans (Abs) 0.0 x10E3/uL 0.0-0.1 Comp. Metabolic Panel (14) - 09/07/16 16:29 Glucose, Serum 75 mg/dL 65-99 BUN 10 mg/dL 8-27 Creatinine, Serum 1.00 mg/dL 0.76-1.27 eGFR If NonAfricn Am 81 mL/min/1.73 >59 eGFR If Africn Am 93 mL/min/1.73 >59 BUN/Creatinine Ratio 10 10-22 Sodium, Serum 139 mmol/L 134-144 Potassium, Serum 4.5 mmol/L 3.5-5.2 Chloride, Serum 98 mmol/L 96-106 Carbon Dioxide, Total 23 mmol/L 18-29 Calcium, Serum 9.7 mg/dL 8.6-10.2 Protein, Total, Serum 7.8 g/dL 6.0-8.5 Albumin, Serum 4.7 g/dL 3.6-4.8 Globulin, Total 3.1 g/dL 1.5-4.5 A/G Ratio 1.5 1.1-2.5 Bilirubin, Total 0.4 mg/dL 0.0-1.2 Alkaline Phosphatase, S 99 IU/L 39-117 AST (SGOT) 25 IU/L 0-40 ALT (SGPT) 29 IU/L 0-44 Testosterone,Free and Total - 09/07/16 16:29 Testosterone, Serum 354 ng/dL [phone] Comment: Comment Free Testosterone(Direct) 8.6 pg/mL 6.6-18.1 TSH - 09/07/16 16:29 TSH 1.950 uIU/mL 0.450-4.500 Encounters ACCT No. Visit Date/Time Discharge Status Pt. Type Provider Facility Loc./Unit Complaint [id number] 05/21/2014 09:37:00 05/21/2014 23:59:59 CLS Outpatient SAKINA MACIEL APRN [id number] 04/23/2014 13:50:00 04/23/2014 23:59:59 CLS Outpatient GLORIA GRANADOS APRN [id number] 03/11/2014 08:49:00 03/11/2014 23:59:59 CLS Outpatient GLORIA GRANADOS APRN [id number] 11/26/2013 15:39:00 11/26/2013 23:59:59 CLS Outpatient AZEEM MENDOZA APRN [id number] 10/22/2013 15:30:00 10/22/2013 23:59:59 CLS Outpatient JANELL DOS SANTOSSONYASAKINA R [id number] 10/11/2013 15:36:00 10/11/2013 23:59:59 CLS Outpatient JANELL DOS SANTOSSAKINA R [id number] 09/16/2013 15:06:00 09/16/2013 23:59:59 CLS Outpatient OZZIE BONE DO [id number] 09/06/2013 16:04:00 09/06/2013 23:59:59 CLS Outpatient JANELL DOS SANTOS SAKINA R [id number] 03/13/2013 15:23:00 Document Registration [id number] 12/27/2012 15:15:00 Document Registration [id number] 10/05/2012 11:23:00 Document Registration [id number] 09/09/2016 23:07:00 Document Registration [id number] 03/09/2015 15:54:00 03/09/2015 23:59:59 CLS Outpatient TRANG, AZEEM [employer] [facility] RAD SHOULDER PAIN [id number] 03/05/2015 16:00:00 03/05/2015 23:59:59 CLS Outpatient TRANG, AZEEM [employer] INST[employer]ER [facility] RAD SHOULDER PAIN [id number] 09/10/2013 13:45:00 09/20/2013 14:10:00 DIS Outpatient TRANG, AZEEM [employer] INST[employer]ER [facility] REHAB NEAL DEQUERVAINS TENDONITIS, NEAL WRIST ARTHRITIS [id number] 06/20/2013 11:48:00 06/20/2013 23:59:59 CLS Outpatient [id number] 06/20/2013 10:28:00 06/20/2013 23:59:59 CLS Outpatient [id number] 06/20/2013 09:35:00 06/20/2013 23:59:59 CLS Outpatient [id number] 03/18/2013 14:52:00 03/18/2013 23:59:59 CLS Outpatient SAKINA MACIEL APRN [facility] SHOULDER PAIN [id number] 02/02/2018 11:40:00 02/02/2018 23:59:59 CLS Outpatient GLORIA GRANADOS APRN [facility]
--- NOTE | 2018-02-25 13:14 | ED Lower Extremity ---
General Chief Complaint: Lower Extremity Stated Complaint: R LEG SWELLING Source: patient Exam Limitations: no limitations History of Present Illness Date Seen by Provider: Feb 25, 2018 Time Seen by Provider: 13:14 Initial Comments 62 year white male presents with pain and swelling of his right lower extremity that began last night. Patient denies trauma to the area. He denies similar episode in the past. The patient has noted redness over the medial aspect of the proximal thigh. This correlates with the area of greatest tenderness. Patient denies paresthesias or weakness in the extremity. He denies shortness of breath. He has had no shortness of breath, hemoptysis, palpitations, or tachycardia. Allergies and Home Medications Allergies Coded Allergies: Penicillins (Unverified Adverse Reaction, Severe, COMA, 01/28/11) Erythromycin Base (Unverified Adverse Reaction, Intermediate, TONGUE SWELLING, 01/28/11) Sulfa (Sulfonamide Antibiotics) (Unverified Adverse Reaction, Mild, HIVES , 01/28/11) Home Medications Mometasone Furoate 15 Gm Cream.gm., 15 GM TP TID Prescribed by: PIERO OLEARY on 01/28/112207 Naproxen Sodium 220 Mg Capsule, 1 TAB PO PRN, (Reported) Prednisone 20 Mg Tab, 40 MG PO DAILY Prescribed by: PIERO OLEARY on 01/28/112207 Patient Home Medication List Home Medication List Reviewed: Yes Constitutional: No chills, No fever EENTM: No ear discharge Respiratory: No cough, No hemoptysis, No short of breath Cardiovascular: No chest pain, No palpitations Gastrointestinal: No abdominal pain, No vomiting Genitourinary: no symptoms reported Musculoskeletal: no symptoms reported Skin: other (redness and swelling to the right lower extremity. This is most prominent over the medial aspect of the proximal portion of the right thigh.) Psychiatric/Neurological: No Symptoms Reported Past Gsxxoaz-Anorro-Yhwfcu Hx Past Med/Social Hx: Reviewed Nursing Past Med/Soc Hx Patient Social History Alcohol Use: Denies Use Recreational Drug Use: No Smoking Status: Current Everyday Smoker Type Used: Cigarettes 2nd Hand Smoke Exposure: Yes Recent Foreign Travel: No Contact w/Someone Who Travel: No Recent Hopitalizations: No Physical Abuse: No Sexual Abuse: No Seasonal Allergies Seasonal Allergies: No Past Medical History Surgeries: Yes (shoulder) Orthopedic Respiratory: No Hypertension Neurological: No Genitourinary: No Gastrointestinal: No Musculoskeletal: No Endocrine: No HEENT: No Cancer: No Psychosocial: No Nursing Suicide Risk Score: 0 Blood Disorders: No Physical Exam Vital Signs Vital Signs - First Documented 02/25/18 12:52 Temp 97.3 Pulse 92 Resp 15 B/P (MAP) 151/91 (111) Pulse Ox 96 O2 Delivery Room Air Capillary Refill : Height, Weight, BMI Height: '" Weight: lbs. oz. kg; BMI Method:Stated General Appearance: WD/WN, no apparent distress HEENT: normal ENT inspection Neck: normal inspection Cardiovascular: regular rate, rhythm, no murmur Respiratory: lungs clear, normal breath sounds, no respiratory distress Gastrointestinal: normal bowel sounds, non tender, soft Back: normal inspection Legs: right leg other (there is diffuse swelling to the right leg. There is tenderness to palpation over the medial proximal portion of the right thigh where there is associated inflammation.) Neurologic/Tendon: normal sensation, normal motor functions, responds to pain Neurologic/Psychiatric: no motor/sensory deficits, alert, normal mood/affect Skin: other (the right lower extremity demonstrates diffuse mild inflammation. There is more significant inflammation over the proximal medial portion of the right thigh.) Progress/Results/Core Measures Results/Orders Lab Results Laboratory Tests Test 02/25/18 13:04 02/25/18 14:55 02/25/18 15:45 Range/Units White Blood Count 9.3 4.3-11.0 10^3/uL Red Blood Count 5.05 4.35-5.85 10^6/uL Hemoglobin 15.9 13.3-17.7 G/DL Hematocrit 46 40-54 % Mean Corpuscular Volume 91 80-99 FL Mean Corpuscular Hemoglobin 32 25-34 PG Mean Corpuscular Hemoglobin Concent 35 32-36 G/DL Red Cell Distribution Width 14.3 10.0-14.5 % Platelet Count 198 130-400 10^3/uL Mean Platelet Volume 10.0 7.4-10.4 FL Neutrophils (%) (Auto) 69 42-75 % Lymphocytes (%) (Auto) 22 12-44 % Monocytes (%) (Auto) 8 0-12 % Eosinophils (%) (Auto) 1 0-10 % Basophils (%) (Auto) 0 0-10 % Neutrophils # (Auto) 6.4 1.8-7.8 X 10^3 Lymphocytes # (Auto) 2.1 1.0-4.0 X 10^3 Monocytes # (Auto) 0.7 0.0-1.0 X 10^3 Eosinophils # (Auto) 0.1 0.0-0.3 10^3/uL Basophils # (Auto) 0.0 0.0-0.1 10^3/uL Erythrocyte Sedimentation Rate 14 0-30 MM/HR Prothrombin Time 13.3 12.2-14.7 SEC INR Comment 1.0 0.8-1.4 Sodium Level 137 135-145 MMOL/L Potassium Level 4.0 3.6-5.0 MMOL/L Chloride Level 106 98-107 MMOL/L Carbon Dioxide Level 20 L 21-32 MMOL/L Anion Gap 11 5-14 MMOL/L Blood Urea Nitrogen 8 7-18 MG/DL Creatinine 0.83 0.60-1.30 MG/DL Estimat Glomerular Filtration Rate > 60 BUN/Creatinine Ratio 10 Glucose Level 94 70-105 MG/DL Calcium Level 9.5 8.5-10.1 MG/DL My Orders Orders - CHANG RAHMAN MD Venous Lower Ext Rt (02/25/18 13:20) Erythrocyte Sedimentation Rate (02/25/18 13:20) Protime With Inr (02/25/18 13:20) Cbc With Automated Diff (02/25/18 13:20) Enoxaparin Injection (Lovenox Injection) (02/25/18 14:30) Saline Lock/Iv-Start (02/25/18 14:33) Psa Screen (02/25/18 15:38) Basic Metabolic Panel (02/25/18 15:42) Ct Kemi Chest/Noang Abd-Pelv W (02/25/18 15:39) Iohexol Injection (Omnipaque 350 Mg/Ml 1 (02/25/18 16:30) Ns (Ivpb) (Sodium Chloride 0.9%) (02/25/18 16:30) Pharmacy Communication (Pharmacy Communi (02/25/18 16:28) Sodium Chloride Flush (Catheter Flush Sy (02/25/18 16:30) Medications Given in ED Current Medications Medications Dose Ordered Sig/Latrell Route Start Time Stop Time Status Last Admin Dose Admin Iohexol 150 ml ONCE ONCE IV 02/25/18 16:30 02/25/18 16:31 DC 02/25/18 16:54 125 ML Sodium Chloride 10 ml NEEDED PRN IV 02/25/18 16:30 02/25/18 16:54 10 ML Sodium Chloride 250 ml ONCE ONCE IV 02/25/18 16:30 02/25/18 16:31 DC 02/25/18 16:54 80 ML Vital Signs/I&O 02/25/18 12:52 Temp 97.3 Pulse 92 Resp 15 B/P (MAP) 151/91 (111) Pulse Ox 96 O2 Delivery Room Air Progress Progress Note : Time: 14:39 Progress Note Ultrasound demonstrated complete venous occlusion of the right lower extremity. Patient received 100 mg of Lovenox subcutaneous. Telephone call was placed to Dr. Hernandez. 5:44 p.m. We had no beds in the hospital. Further imaging demonstrated no acute pass solid G on CT of the abdomen and pelvis. An incidental finding of a single stone in the gallbladder was noted. There was however on CT of the chest bilateral pulmonary emboli. I discussed the findings with the patient and his . They're agreeable to transfer to [facility]. I have called [facility]'s transfer line and him awaiting conversation with the hospitalist in anticipation of transfer to [facility]. Departure Impression Primary Impression: Pulmonary embolism Qualified Codes: I26.99 - Other pulmonary embolism without acute cor pulmonale Disposition: 02 XFER SHT-TRM HOSP Condition: Improved Transfer Time Spoke to Accepting Phy: 17:[address] Ace Saba at [facility] in [place]. Transfer Time: 17:59 Transfer Facility: [facility] Method of Transfer: Private Vehicle Departure-Patient Inst. Referrals: NO,LOCAL PHYSICIAN (PCP/Family) Primary Care Physician CHANG RAHMAN MD Feb 25, 2018 13:14
[2018-02-25 13:29] LABS: BASOPHILS % (AUTO) 0 % (0-10); EOSINOPHILS # (AUTO) 0.1 10^3/uL (0.0-0.3); EOSINOPHILS % (AUTO) 1 % (0-10); HEMATOCRIT 46 % (40-54); HEMOGLOBIN 15.9 G/DL (13.3-17.7); LYMPHOCYTES # (AUTO) 2.1 X 10^3 (1.0-4.0); LYMPHOCYTES % (AUTO) 22 % (12-44); MEAN CORPUSCULAR HEMOGLOBIN 32 PG (25-34); MEAN CORPUSCULAR HGB CONC 35 G/DL (32-36); MEAN CORPUSCULAR VOLUME 91 FL (80-99); MONOCYTES # (AUTO) 0.7 X 10^3 (0.0-1.0); MONOCYTES % (AUTO) 8 % (0-12); NEUTROPHILS # (AUTO) 6.4 X 10^3 (1.8-7.8); NEUTROPHILS % (AUTO) 69 % (42-75); PLATELET COUNT 198 10^3/uL (130-400); RED BLOOD COUNT 5.05 10^6/uL (4.35-5.85); RED CELL DISTRIBUTION WIDTH 14.3 % (10.0-14.5); WHITE BLOOD COUNT 9.3 10^3/uL (4.3-11.0)
[2018-02-25 13:38] LABS: PROTHROMBIN TIME PATIENT 13.3 SEC (12.2-14.7)
[2018-02-25 13:59] LABS: ERYTHROCYTE SEDIMENTATION RATE 14 MM/HR (0-30)
[2018-02-25] MEDS ORDERED: ENOXAPARIN 100 MG/1 ML (LOVENOX) SYR SC SCH (14:30)
--- NOTE | 2018-02-25 14:56 | Diagnostic Imaging Report ---
INDICATION: Right lower chimney swelling and redness. EXAMINATION: Right lower extremity venous Doppler, 02/25/2018. FINDINGS: There is occlusive thrombus noted within the common femoral vein which extends all the way through the lower extremity to the level of the peroneal veins in the calf. Minimal flow is seen within the posterior tibial veins. IMPRESSION: Marked diffuse occlusive thrombus throughout much of the lower extremity, as noted above. Findings called Dr. Weaver by Dr. Trinh, 02/25/2018 at 2:34 p.m. Dictated by: Dictated on workstation # [id number]
[2018-02-25 16:16] LABS: BUN/CREATININE RATIO 10; CALCIUM 9.5 MG/DL (8.5-10.1); CARBON DIOXIDE 20 MMOL/L (21-32); CHLORIDE 106 MMOL/L (98-107); CREATININE SERUM 0.83 MG/DL (0.60-1.30); GFR ESTIMATED > 60; GLUCOSE 94 MG/DL (70-105); SODIUM 137 MMOL/L (135-145)
[2018-02-25] MEDS ORDERED: NS 250 ML (IVPB) BAG IV ONE (16:30)
[2018-02-25] MEDS ORDERED: IOHEXOL 350 MG/ML 150 ML (OMNIPAQUE 350) VIAL IV ONE (16:30)
[2018-02-25] MEDS ORDERED: CATHETER FLUSH 10 ML SYR IV PRN (16:30)
--- NOTE | 2018-02-25 17:22 | Diagnostic Imaging Report ---
INDICATION: Right leg swelling and deep venous thrombosis. EXAMINATION: CTA chest, CT abdomen and pelvis. FINDINGS: There are filling defects seen within the pulmonary arteries, bilaterally, compatible with embolism. The thoracic aorta is normal in caliber and without evidence of dissection. There are no discrete pulmonary nodules, masses or infiltrates. There is minimal scarring and/or atelectasis at the right lung base. There is no pericardial fluid. There is no pneumothorax. There is no pathologically enlarged adenopathy in the chest. The liver is normal in size and without focal lesions. There is cholelithiasis. There is no biliary ductal dilatation. Spleen is normal. The pancreas and adrenal glands are unremarkable. The kidneys are normal in appearance. The abdominal aorta is nonaneurysmal. Bowel gas pattern is nonspecific. There is no free air. There is no ascites. There is no pelvic mass, adenopathy or free fluid. There are degenerative changes in the spine. IMPRESSION: 1. Bilateral pulmonary embolism. 2. Cholelithiasis. 3. Minimal scarring in the right lung base. 4. No other acute abnormality in the chest. CRITICAL FINDINGS Report was called to Kala in the [facility] ER at 5:20 p.m., by john. Dictated by: Dictated on workstation # [id number]
[2018-02-25 18:40] VITALS: BP 152/99
== END 2018-02-25 18:40 | disposition short-term general hospital (02) ==
LOC: EDUNIT# 12:47 → ER 12:48
DX: I26.99 Other pulmonary embolism without acute cor pulmonale (principal); I10 Essential (primary) hypertension; F17.210 Nicotine dependence, cigarettes, uncomplicated; Z88.0 Allergy status to penicillin; Z88.1 Allergy status to other antibiotic agents; Z88.2 Allergy status to sulfonamides
CPT/HCPCS: 36415; 71275; 74177; 80048; 81240; 83090; 84153; 85025; 85240; 85307; 85610; 85613; 85652; 85705; 85730; 86146; 86147

== ENCOUNTER 2020-05-28 06:39 | Inpatient (IN) | payer SELFPAY ==
[~2020-05-28] VITALS: Ht 177.8 cm; Wt 94.0 kg
[2020-05-28] MEDS ORDERED: LACTATED RINGERS 1,000 ML IV ONE (06:53)
[2020-05-28] MEDS ORDERED: MEROPENEM 1,000 MG in WATER (STERILE) FOR INJECTION 20 ML IV ONE (07:00)
--- NOTE | 2020-05-28 07:05 | NUR ---
02 SAT 97-98% ON 15L NRB. NRB REMOVED AT THIS TIME AND REPLACED WITH OXYMASK AT 6L. O2 SATS MAINTAINING 96-97%.
--- NOTE | 2020-05-28 07:09 | ED General ---
General Chief Complaint: Respiratory Problems Stated Complaint: FALL,SOA Nursing Triage Note: brought in by [facility] c/o fall/soa. pt reports increased soa,weakness today et. sliding to floor in shower this am. currently being treated for pneumonia. Nursing Sepsis Screen: Possible Sepsis Risk Source of Information: Patient Exam Limitations: No Limitations History of Present Illness Date Seen by Provider: May 28, 2020 Time Seen by Provider: 06:43 Initial Comments This is 64-year-old gentleman presents to the emergency room via EMS after falling in the shower. EMS reports he was hypoxic and had cyanosis over the lower body. Oxygen saturations were in the 70s on room air and he was in respiratory distress. They applied oxygen at 15 L by nonrebreather. This did resuscitate his oxygen to the mid 90s and resolved his respiratory distress. Patient has been treated for pneumonia over the last 3 weeks. He was taking doxycycline but that made him nauseous. He was recently changed to clindamycin. He has numerous antibiotic allergies. He quit smoking when he developed pneumonia. He has not been tested for COVID-19. He denies any known exposures. He denies any other health problems including COPD. He does not take any medications other than his antibiotics. EMS reported patient had expiratory wh eezes that resolved with oxygen. Patient reports no injuries when he fell. He actually slid down and lowered himself in a controlled fashion. It was not a traumatic fall. EMS reports he was tachycardic, diaphoretic and cyanotic initially. Oral intake has been poor. Review of his chart notes prior PE. Patient does not know what caused the PE and he was only on a short course of anticoagulation therapy. Patient reports he has had numerous episodes of pneumonia. Allergies and Home Medications Allergies Coded Allergies: Penicillins (Unverified Adverse Reaction, Severe, COMA, 01/28/11) erythromycin base (Unverified Adverse Reaction, Intermediate, TONGUE SWELLING, 01/28/11) Sulfa (Sulfonamide Antibiotics) (Unverified Adverse Reaction, Mild, HIVES, 01/28/11) Home Medications Mometasone Furoate 15 Gm Cream.gm., 15 GM TP TID Prescribed by: PIERO OLEARY on 01/28/112207 Naproxen Sodium 220 Mg Capsule, 1 TAB PO PRN, (Reported) Prednisone 20 Mg Tab, 40 MG PO DAILY Prescribed by: PIERO OLEARY on 01/28/11 2066 Patient Home Medication List Home Medication List Reviewed: Yes Review of Systems Review of Systems Constitutional: see HPI, weakness EENTM: no symptoms reported Respiratory: see HPI Cardiovascular: see HPI Gastrointestinal: see HPI, nausea Genitourinary: no symptoms reported Musculoskeletal: no symptoms reported Skin: no symptoms reported Psychiatric/Neurological: No Symptoms Reported Hematologic/Lymphatic: No Symptoms Reported Immunological/Allergic: no symptoms reported Past Xntcrkc-Ahhxwl-Pfcymc Hx Past Med/Social Hx: Reviewed Nursing Past Med/Soc Hx Patient Social History Alcohol Use: Denies Use Recreational Drug Use: No Smoking Status: Current Everyday Smoker Type Used: Cigarettes 2nd Hand Smoke Exposure: Yes Recent Foreign Travel: No Contact w/Someone Who Travel: No Recent Infectious Disease Expo: No Recent Hopitalizations: No Immunizations Up To Date Tetanus Booster (TDap): Unknown Seasonal Allergies Seasonal Allergies: No Past Medical History Surgeries: Yes (shoulder) Orthopedic Respiratory: Yes Pneumonia, Pulmonary Embolism Cardiac: Yes Hypertension Neurological: No Genitourinary: No Gastrointestinal: No Musculoskeletal: No Endocrine: No HEENT: No Cancer: No Psychosocial: No Integumentary: No Blood Disorders: No Physical Exam-Suspected Sepsis Physical Exam Vital Signs Vital Signs - First Documented 05/28/20 06:45 Temp 36.3 Pulse 120 Resp 18 B/P (MAP) 125/90 (102) Pulse Ox 98 O2 Delivery Non Rebreather O2 Flow Rate 15.00 Capillary Refill : Less Than 3 Seconds Blood Pressure Mean: 102 Height, Weight, BMI Height: 5'10.00" Weight: 207lbs. oz. 93.178031bm; 29.00 BMI Method:Stated General Appearance: No Apparent Distress, WD/WN, Other (Generally ill appearing) HEENT: PERRL/EOMI, Normal ENT Inspection, Other (Mucous membranes dry) Neck: Normal Inspection; No JVD Respiratory: Lungs Clear, Normal Breath Sounds, No Accessory Muscle Use, Other (Slight tachypnea) Cardiovascular: No Edema, No Murmur, Normal Peripheral Pulses, Tachycardia (Regular) Gastrointestinal: Normal Bowel Sounds, Non Tender, Soft Extremity: Normal Inspection, Non Tender, No Pedal Edema Neurologic/Psychiatric: Alert, Oriented x3, No Motor/Sensory Deficits, Normal Mood/Affect, order worker II-XII Norm as Tested Skin: normal color, warm/dry Focused Exam Sepsis Stage: Severe Sepsis Possible Source: Pulmonary Lactate Level 05/28/20 06:55: Lactic Acid Level 4.30*H 05/28/20 09:05: Lactic Acid Level 1.84 Time of Focused Exam: 10:05 Respiratory: No Accessory Muscle Use, No Respiratory Distress Cardiovascular: No Edema, No Murmur, Tachycardia Skin: normal color Lactic Acid Level Within 3hrs of presentation: Admin fluids, Admin 30ml/kg IBW due to BMI>30, Admin ABX, Blood cultures prior to ABX's, Focus exam, Lactate level Progress/Results/Core Measures Suspected Sepsis Recent Fever Within 48 Hours: Yes Infection Criteria Present: Documented Infection New/Unexplained Altered Menta: No Sepsis Screen: Possible Sepsis Risk SIRS Temperature: Pulse: 120 Respiratory Rate: 18 Laboratory Tests 05/28/20 06:55: White Blood Count 15.2H Blood Pressure 125 /90 Mean: 102 05/28/20 06:55: Lactic Acid Level 4.30*H 05/28/20 09:05: Lactic Acid Level 1.84 Laboratory Tests 05/28/20 06:55: Creatinine 1.27, Platelet Count 280, Total Bilirubin 1.6H 05/28/20 07:18: INR Comment 1.3 Results/Orders Lab Results Laboratory Tests Test 05/28/20 06:55 05/28/20 07:00 05/28/20 07:18 05/28/20 08:08 Range/Units White Blood Count 15.2 H 4.3-11.0 10^3/uL Red Blood Count 5.33 4.30-5.52 10^6/uL Hemoglobin 16.1 13.3-17.7 g/dL Hematocrit 49 40-54 % Mean Corpuscular Volume 91 80-99 fL Mean Corpuscular Hemoglobin 30 25-34 pg Mean Corpuscular Hemoglobin Concent 33 32-36 g/dL Red Cell Distribution Width 13.4 10.0-14.5 % Platelet Count 280 130-400 10^3/uL Mean Platelet Volume 9.8 9.0-12.2 fL Immature Granulocyte % (Auto) 2 % Neutrophils (%) (Auto) 83 H 42-75 % Lymphocytes (%) (Auto) 10 L 12-44 % Monocytes (%) (Auto) 4 0-12 % Eosinophils (%) (Auto) 1 0-10 % Basophils (%) (Auto) 0 0-10 % Neutrophils # (Auto) 12.6 H 1.8-7.8 10^3/uL Lymphocytes # (Auto) 1.5 1.0-4.0 10^3/uL Monocytes # (Auto) 0.7 0.0-1.0 10^3/uL Eosinophils # (Auto) 0.1 0.0-0.3 10^3/uL Basophils # (Auto) 0.1 0.0-0.1 10^3/uL Immature Granulocyte # (Auto) 0.3 H 0.0-0.1 10^3/uL Neutrophils % (Manual) 79 % Lymphocytes % (Manual) 9 % Monocytes % (Manual) 6 % Eosinophils % (Manual) 0 % Basophils % (Manual) 0 % Band Neutrophils 6 % Blood Morphology Comment NORMAL Sodium Level 130 L 135-145 MMOL/L Potassium Level 3.7 3.6-5.0 MMOL/L Chloride Level 97 L 98-107 MMOL/L Carbon Dioxide Level 12 L 21-32 MMOL/L Anion Gap 21 H 5-14 MMOL/L Blood Urea Nitrogen 12 7-18 MG/DL Creatinine 1.27 0.60-1.30 MG/DL Estimat Glomerular Filtration Rate 57 BUN/Creatinine Ratio 9 Glucose Level 284 H 70-105 MG/DL Lactic Acid Level 4.30 *H 0.50-2.00 MMOL/L Calcium Level 8.9 8.5-10.1 MG/DL Corrected Calcium 9.1 8.5-10.1 MG/DL Total Bilirubin 1.6 H 0.1-1.0 MG/DL Aspartate Amino Transf (AST/SGOT) 101 H 5-34 U/L Alanine Aminotransferase (ALT/SGPT) 137 H 0-55 U/L Alkaline Phosphatase 145 H 40-136 U/L Lactate Dehydrogenase 530 H 125-220 U/L Troponin I 0.034 H <0.028 NG/ML C-Reactive Protein High Sensitivity 11.73 H 0.00-0.50 MG/DL B-Type Natriuretic Peptide 85.3 <100.0 PG/ML Total Protein 7.9 6.4-8.2 GM/DL Albumin 3.8 3.2-4.5 GM/DL Procalcitonin 0.26 H <0.10 NG/ML Coronavirus 2019 (MIKAEL) Negative Negative Prothrombin Time 16.3 H 12.2-14.7 SEC INR Comment 1.3 0.8-1.4 Activated Partial Thromboplast Time 36 H 24-35 SEC D-Dimer 19.21 H 0.00-0.49 UG/ML Test 05/28/20 08:45 05/28/20 09:05 05/28/20 11:25 05/28/20 14:13 Range/Units Urine Color YELLOW Urine Clarity CLEAR Urine pH 6.0 5-9 Urine Specific [place] <=1.005 1.016-1.022 Urine Protein TRACE H NEGATIVE Urine Glucose (UA) NEGATIVE NEGATIVE Urine Ketones NEGATIVE NEGATIVE Urine Nitrite NEGATIVE NEGATIVE Urine Bilirubin NEGATIVE NEGATIVE Urine Urobilinogen 0.2 < = 1.0 MG/DL Urine Leukocyte Esterase NEGATIVE NEGATIVE Urine RBC (Auto) TRACE-L NEGATIVE Urine RBC RARE /HPF Urine WBC RARE /HPF Urine Squamous Epithelial Cells RARE /HPF Urine Crystals PRESENT H /LPF Urine Amorphous Sediment RARE LISA URATES H /LPF Urine Bacteria TRACE /HPF Urine Casts PRESENT /LPF Urine Granular Casts RARE /LPF Urine Mucus NEGATIVE /LPF Urine Culture Indicated CULTURE PENDING Lactic Acid Level 1.84 0.50-2.00 MMOL/L Blood Gas Puncture Site LEFT RADIAL Blood Gas Patient Temperature 36.7 Arterial Blood pH 7.41 7.37-7.43 Arterial Blood Partial Pressure CO2 34 L 35-45 MMHG Arterial Blood Partial Pressure O2 93 79-93 MMHG Arterial Blood HCO3 21 L 23-27 MMOL/L Arterial Blood Total CO2 22.1 21.0-31.0 MMOL/L Arterial Blood Oxygen Saturation 97 94-100 % Arterial Blood Base Excess -2.9 L -2.5-2.5 MMOL/L Royer Test POSITIVE Blood Gas Ventilator Setting NO Blood Gas Inspired Oxygen 5 L Troponin I 0.712 *H <0.028 NG/ML Test 05/28/20 15:05 Range/Units Activated Partial Thromboplast Time 64 H 24-35 SEC Micro Results Microbiology 05/28/20 Influenza Types A,B Antigen (IAM) - Final, Complete My Orders Orders - MICK SANDERS MD Cbc With Automated Diff (05/28/20 06:53) Comprehensive Metabolic Panel (05/28/20 06:53) Blood Culture (05/28/20 06:53) Sputum Culture (05/28/20 06:53) Urinalysis (05/28/20 06:53) Urine Culture (05/28/20 06:53) Protime With Inr (05/28/20 06:53) Partial Thromboplastin Time (05/28/20 06:53) Chest 1 View, Ap/Pa Only (05/28/20 06:53) Ed Iv/Invasive Line Start (05/28/20 06:53) Ed Iv/Invasive Line Start (05/28/20 06:53) Ekg Tracing (05/28/20 06:53) Troponin I (05/28/20 06:53) O2 (05/28/20 06:53) Remove Rings In Anticipation O (05/28/20 06:53) Lactic Acid Analyzer (05/28/20 06:53) Influenza A And B Antigens (05/28/20 06:53) Fibrin Degradation Products (05/28/20 06:53) Procalcitonin (Pct) (05/28/20 06:53) Hs C Reactive Protein (05/28/20 06:53) LDH (05/28/20 06:53) Covid 19 Inhouse Test (05/28/20 06:53) Lactated Ringers (Lr 1000 Ml Iv Solution (05/28/20 06:53) Meropenem (Merrem 1000 Mg) (05/28/20 07:00) Manual Differential (05/28/20 06:55) Coronavirus Sars-Cov-2 So 2018 (05/28/20 07:41) Albuterol Inhaler (Ventolin Hfa) (05/28/20 10:00) BNP (05/28/20 07:45) Ns Iv 1000 Ml (Sodium Chloride 0.9%) (05/28/20 08:12) Ct Angio Chest W (05/28/20 08:13) Iohexol Injection (Omnipaque 350 Mg/Ml 1 (05/28/20 08:30) Received Contrast (Hold Metformin- Contr (05/28/20 08:30) Ns (Ivpb) (Sodium Chloride 0.9% Ivpb Bag (05/28/20 08:30) Heparin Drip 28158 Unit/500ml (Heparin (05/28/20 09:12) Heparin (Bolus Per Protocol) (Heparin (B (05/28/20 09:15) Echo Limited (05/28/20 09:11) Ns Iv 500 Ml (Sodium Chloride 0.9%) (05/28/20 10:10) Arterial Blood Gas (05/28/20 11:29) Medications Given in ED Current Medications Medications Dose Ordered Sig/Latrell Route Start Time Stop Time Status Last Admin Dose Admin Heparin Sodium (Porcine) HEPARIN FULL PROTOC... ONCE ONCE IV 05/28/20 09:15 05/28/20 09:16 DC 05/28/20 10:50 5,000 UNIT Heparin Sodium/ Dextrose 500 ml @ 0 mls/hr Q0M ONCE IV 05/28/20 09:12 05/28/20 09:14 DC 05/28/20 10:55 24 MLS/HR Iohexol 100 ml ONCE ONCE IV 05/28/20 08:30 05/28/20 08:31 DC 05/28/20 09:05 77 ML Lactated Ringer's 1,000 ml @ 0 mls/hr Q0M ONCE IV 05/28/20 06:53 05/28/20 06:56 DC 05/28/20 07:11 999 MLS/HR Meropenem 1000 mg/ Sterile Water 20 ml @ 240 mls/hr ONCE ONCE IV 05/28/20 07:00 05/28/20 07:04 DC 05/28/20 07:11 240 MLS/HR Sodium Chloride 100 ml ONCE ONCE IV 05/28/20 08:30 05/28/20 08:31 DC 05/28/20 09:05 80 ML Sodium Chloride 500 ml @ 0 mls/hr Q0M ONCE IV 05/28/20 10:10 05/28/20 10:11 DC 05/28/20 10:48 500 MLS/HR Sodium Chloride 1,000 ml @ 0 mls/hr Q0M ONCE IV 05/28/20 08:12 05/28/20 08:13 DC 05/28/20 08:15 1,000 MLS/HR Vital Signs/I&O 05/28/20 05/28/20 05/28/20 05/28/20 06:45 06:45 12:40 13:30 Temp 36.3 36.3 Pulse 120 107 101 Resp 18 18 B/P (MAP) 125/90 (102) 135/90 (102) Pulse Ox 98 98 96 O2 Delivery Non Rebreather Non Rebreather Nasal Cannula O2 Flow Rate 15.00 15.00 5.00 05/28/20 05/28/20 14:30 16:23 Temp 36.3 Pulse 101 Pulse Ox 96 O2 Delivery High Flow N/C O2 Flow Rate 6.00 Capillary Refill : Less Than 3 Seconds Blood Pressure Mean: 102 Progress Note #1: Time: 07:10 Progress Note Patient was seen and examined. Septic work-up is being pursued including a rapid Covid swab, influenza swab. EKG will also be obtained. A liter of IV fluid is infusing. Progress Note #2: Time: 08:14 Progress Note Patient was treated with meropenem for suspected sepsis and pneumonia. Meropenem was selected due to allergy profile. He has now received 1500 mL of IV fluids. An additional liter of normal saline is now being infused. He received 4 puffs on an albuterol inhaler which seemed to improve his respiratory status a bit. He seems more relaxed. D-dimer was markedly elevated at 19. CT angiogram of the chest is pending. Rapid Covid and influenza swabs were negative. Progress Note #3: Time: 10:13 Progress Note D-dimer was markedly elevated. CT angiogram of the chest reveals bilateral pulmonary emboli. There was suggestion of right heart strain. Bedside echocardiogram revealed a pulmonary artery pressure of about 80 mmHg. right ventricle was slightly dilated. I have reviewed the case with Dr. Ramos and Dr. Martins. Plan is to admit to the cardiac stepdown unit since he is hemodynamically stable with a heparin bolus and drip. As a precaution we will also finish out the 30 mL/kg fluid boluses in the ER as sepsis has not been completely ruled out at this point. Meropenem was started as stated above. ECG Initial ECG Impression Date: May 28, 2020 Initial ECG Impression Time: 07:08 Initial ECG Rate: 121 Comment Sinus tachycardia with subtle ST changes. No ischemic ST elevation or depression. Probable LVH. Borderline prolonged QT interval. Diagnostic Imaging Diagonstic Imaging: Xray Plain Films/CT/US/NM/MRI: chest Comments Chest x-ray viewed by me and report reviewed. See report below: NAME: HANK LADD MED REC#: [id number] PT STATUS: REG ER : 1955 PHYSICIAN: MICK SANDERS MD ADMIT DATE: 05/28/20/ER Draft Date of Exam:05/28/20 CHEST 1 VIEW, AP/PA ONLY Indication: Fall and dyspnea AP view of the chest is obtained with comparison made to study of 06/20/2013. Heart size is within normal. Pulmonary vascularity is at the upper limits of normal. Linear density left lung base most compatible with atelectasis. No definite change is appreciated. IMPRESSION: Mild left basilar atelectasis with pulmonary vascularity at the upper limits of normal. No overt edema or other acute abnormality is appreciated. Dictated on workstation # [id number] Dict: 05/28/20 0756 Trans: 05/28/20 0758 [facility] [id number] Interpreted by: NITIN HUIZAR MD Departure Communication (Admissions) Time/Spoke to Admitting Phy: 10:05 Dr. Ruben Martins at 09:13 Dr. Ramos at 10:04 Impression Primary Impression: Bilateral pulmonary embolism Additional Impression: Hypoxia Disposition: ADMITTED INPATIENT Condition: Improved Admissions Decision to Admit Reason: Admit from ER (General) Decision to Admit/Date: May 28, 2020 Time/Decision to Admit Time: 06:50 Departure-Patient Inst. Referrals: NO,LOCAL PHYSICIAN (PCP/Family) Primary Care Physician Copy Copies To 1: OZZIE BONE JOSHUA T MD May 28, 2020 07:09
[2020-05-28 07:13] LABS: BASOPHILS # (AUTO) 0.1 10^3/uL (0.0-0.1); BASOPHILS % (AUTO) 0 % (0-10); EOSINOPHILS # (AUTO) 0.1 10^3/uL (0.0-0.3); EOSINOPHILS % (AUTO) 1 % (0-10); HEMATOCRIT 49 % (40-54); HEMOGLOBIN 16.1 g/dL (13.3-17.7); LYMPHOCYTES # (AUTO) 1.5 10^3/uL (1.0-4.0); LYMPHOCYTES % (AUTO) 10 % (12-44); MEAN CORPUSCULAR HEMOGLOBIN 30 pg (25-34); MEAN CORPUSCULAR HGB CONC 33 g/dL (32-36); MEAN CORPUSCULAR VOLUME 91 fL (80-99); MEAN PLATELET VOLUME 9.8 fL (9.0-12.2); MONOCYTES # (AUTO) 0.7 10^3/uL (0.0-1.0); MONOCYTES % (AUTO) 4 % (0-12); NEUTROPHILS # (AUTO) 12.6 10^3/uL (1.8-7.8); NEUTROPHILS % (AUTO) 83 % (42-75); PLATELET COUNT 280 10^3/uL (130-400); WHITE BLOOD COUNT 15.2 10^3/uL (4.3-11.0)
[2020-05-28 07:33] LABS: ALBUMIN 3.8 GM/DL (3.2-4.5); BILIRUBIN,TOTAL 1.6 MG/DL (0.1-1.0); CALCIUM 8.9 MG/DL (8.5-10.1); CREATININE SERUM 1.27 MG/DL (0.60-1.30); POTASSIUM 3.7 MMOL/L (3.6-5.0); TOTAL PROTEIN 7.9 GM/DL (6.4-8.2)
--- NOTE | 2020-05-28 07:58 | Diagnostic Imaging Report ---
Indication: Fall and dyspnea AP view of the chest is obtained with comparison made to study of 06/20/2013. Heart size is within normal. Pulmonary vascularity is at the upper limits of normal. Linear density left lung base most compatible with atelectasis. No definite change is appreciated. IMPRESSION: Mild left basilar atelectasis with pulmonary vascularity at the upper limits of normal. No overt edema or other acute abnormality is appreciated. Dictated by: Dictated on workstation # [id number]
[2020-05-28 08:00] LABS: FIBRIN DEGRADATION PRODUCTS 19.21 UG/ML (0.00-0.49); INR 1.3 (0.8-1.4); PROTHROMBIN TIME PATIENT 16.3 SEC (12.2-14.7)
[2020-05-28] MEDS: RT-ALBUTEROL INHALER HFA (VENTOLIN HFA) 18 GM IH SCH ×3 (08:06→20:59)
--- NOTE | 2020-05-28 08:07 | NUR ---
500 ml NS from EMS infused at this time
[2020-05-28 08:09] LABS: BAND NEUTROPHILS 6 %; BASOPHILS % (MANUAL) 0 %; EOSINOPHILS % (MANUAL) 0 %; LYMPHOCYTES % (MANUAL) 9 %; MONOCYTES % (MANUAL) 6 %; NEUTROPHILS % (MANUAL) 79 %; RBC MORPH NORMAL
[2020-05-28] MEDS ORDERED: NS IV 1000 ML 1,000 ML IV ONE (08:12)
[2020-05-28] MEDS ORDERED: IOHEXOL 350 MG/ML 100 ML (OMNIPAQUE 350) VIAL IV ONE (08:30)
[2020-05-28] MEDS ORDERED: NS 100 ML (IVPB) BAG IV ONE (08:30)
[2020-05-28] MEDS ORDERED: HOLD METFORMIN - RECEIVED CONTRAST 20 ML VIAL IV SCH (08:30)
[2020-05-28 08:56] LABS: BILIRUBIN,URINE NEGATIVE (NEGATIVE); CLARITY,URINE CLEAR; COLOR,URINE YELLOW; GLUCOSE, URINE (UA) NEGATIVE (NEGATIVE); KETONES,URINE NEGATIVE (NEGATIVE); LEUKOCYTE ESTERASE ,URINE NEGATIVE (NEGATIVE); NITRITE,URINE NEGATIVE (NEGATIVE); PROTEIN,URINE TRACE (NEGATIVE)
[2020-05-28 09:03] LABS: AMORPHOUS SEDIMENT,UR RARE AMOR URATES /LPF; BACTERIA,URINE TRACE /HPF; RBC,URINE RARE /HPF; SQUAMOUS EPITHELIAL CELL,UR RARE /HPF; WBC,URINE RARE /HPF
[2020-05-28 09:04] LABS: GRANULAR CASTS,URINE RARE /LPF
[2020-05-28] MEDS ORDERED: HEParin DRIP 25000 UNIT/500ML 500 ML IV ONE (09:12)
[2020-05-28] MEDS ORDERED: HEParin 1000 UNIT/ML (10ML VIAL) FOR BOLUS IV ONE (09:15)
--- NOTE | 2020-05-28 09:22 | Diagnostic Imaging Report ---
PROCEDURE: CT angiography of the chest with contrast. TECHNIQUE: Multiple contiguous axial images were obtained through the chest after uneventful bolus administration of intravenous contrast. 3D reconstructed CTA MIP acquisitions were also performed. Auto Exposure Controls were utilized during the CT exam to meet ALARA standards for radiation dose reduction. INDICATION: Pulmonary embolism There are large bilateral pulmonary emboli. On the right this extends from the right main pulmonary artery into the upper, middle and lower lobe branches. On the left, this also extends from the main renal artery into the upper and lower lobe pulmonary artery branches. The right to left ventricular ratio is 1.3. There is no acute aortic pathology seen. There is some calcific arterial sclerosis of the aorta. There is some atelectasis at left lung base. There is a calculus in the gallbladder. IMPRESSION: 1. Large bilateral pulmonary emboli with evidence of right ventricular strain. CRITICAL FINDING Report given to Dr. Carrillo at 9:21 AM 05/28/2020/cb Dictated by: Dictated on workstation # [id number]
[2020-05-28] MEDS ORDERED: NS IV 500 ML 500 ML IV ONE (10:10)
[2020-05-28 11:37] LABS: ABG BASE EXCESS -2.9 MMOL/L (-2.5-2.5); ABG OXYGEN SATURATION 97 % (94-100); ABG PCO2 34 MMHG (35-45); ABG PH 7.41 (7.37-7.43); ABG PO2 93 MMHG (79-93); ABG TCO2 22.1 MMOL/L (21.0-31.0)
[2020-05-28 11:38] LABS: ALLENS TEST POSITIVE; INSPIRED O2 5 L; PATIENT TEMP 36.7; VENTILATOR NO
--- NOTE | 2020-05-28 12:30 | NUR ---
HANK LADD SR admitted to room 511-1, with an admitting diagnosis of BILATERAL PULMONARY EMBOLISM AND HYPOXIA, on 05/28/20 from ED via WHEELCHAIR, accompanied by STAFF.HANK LADD SR introduced to surroundings, call light, bed controls, phone, TV, temperature control, lights, meal times, smoking policy, visitor policy, side rail policy, bathrooms and showers. Patient Rights given to patient in the handbook. HANK LADD SR verbalizes understanding that [facility] is not responsible for the loss or damage to any personal effects or valuables that are kept in the patients posession during their hospitalization. HANK LADD SR verbalizes understanding of Interdisciplinary Patient Education. Patient and/or family were informed about the Rapid Response Team and its purpose.
[2020-05-28] MEDS ORDERED: ONDANSETRON 4 MG/2 ML (SDV) Z0FRAN IV PRN (12:45)
[2020-05-28] MEDS ORDERED: HEParin DRIP 25000 UNIT/500ML 500 ML IV SCH (12:48)
[2020-05-28] MEDS ORDERED: CATHETER FLUSH 10 ML SYR IV PRN (13:00)
[2020-05-28] MEDS ORDERED: HEParin 1000 UNIT/ML (10ML VIAL) FOR BOLUS IV SCH (13:00)
[2020-05-28] MEDS: NS IV 1000 ML 1,000 ML IV SCH ×2 (13:27→23:23)
[2020-05-28] MEDS: MEROPENEM 500 MG/SWFI 10 ML IV PUSH IV SCH ×4 (13:28→20:21)
--- NOTE | 2020-05-28 15:01 | Diagnostic Imaging Report ---
PROCEDURE: US Venous Lower Ext Ramu. TECHNIQUE: Multiple real-time grayscale images were obtained over the lower extremities in various projections, bilaterally. Additional duplex Doppler and color Doppler images were also obtained. INDICATION: Pulmonary embolism and hypoxia. FINDINGS: There is partially occlusive thrombus identified in the right common femoral vein and deep femoral vein. The right superficial femoral and popliteal veins as well as calf veins appear to be widely patent. On the left, the common femoral and superficial femoral veins are widely patent. There is partially occlusive thrombus in the left popliteal vein. There is occlusive thrombus in the left posterior tibial and peroneal veins. No fluid collections are seen. IMPRESSION: Findings consistent with bilateral partially occlusive DVT, as described above. Dictated by: Dictated on workstation # [id number]
[2020-05-28 16:23] VITALS: BP 135/90
[2020-05-28] MEDS ORDERED: RT-ALBUTEROL INHALER HFA (VENTOLIN HFA) 18 GM IH PRN (17:00)
--- NOTE | 2020-05-28 17:47 | Consultation-Cardiology ---
HPI-Cardiology Cardiology Consultation: Date of Consultation 05/28/20 Date of Admission Attending Physician Urmila Miranda DO Admitting Physician Viral Rowland Consulting Physician Valorie RAMOS MD HPI: Time Seen by a Provider: 16:00 Chief Complaint: Bilateral pulmonary embolism This is a 64-year-old gentleman who presented with syncope, hypoxia and cyanosis. Severe respiratory distress with oxygen saturation of 70 percent. He was given on nonrebreather and his oxygen level came up into the 90s. He has been treated for pneumonia recently. He is a chronic smoker but quit a month ago. CT chest shows that he has bilateral pulmonary embolism. He previously had pulmonary embolism 2 years ago and was on oral anticoagulation for one year. Pertinent family history is negative. Systolic blood pressure in the ER was 150 mmHg. Review of Systems-Cardiology Review of Systems Constitutional: As described under HPI; No As described under HPI, No no symptoms reported, No chills, No fever, No lightheadedness Eyes: No As described under HPI, No no symptoms reported, No blindness, No blurred vision, No contact lenses, No drainage, No decreased acuity, No foreign body sensation, No pain, No vision change Ears/Nose/Throat: No As described under HPI, No no symptoms reported, No chronic hearing loss, No ear discharge, No ear pain, No nasal drainage, No ulcerations Respiratory: No no symptoms reported; As described under HPI; No As described under HPI, No cough; orthopnea, shortness of breath; No SOB with excertion Cardiovascular: No no symptoms reported; As described under HPI; No As descr ibed under HPI, No chest pain, No edema, No irregular heart rate, No lightheadedness, No palpitations Gastrointestinal: No no symptoms reported, No As described under HPI, No abdomen distended, No abdominal pain, No blood streaked bowels, No constipation, No diarrhea, No nausea, No vomiting, No stool coloration changes Genitourinary: No As described under HPI, No burning, No dysuria, No discharge, No frequency, No flank pain, No hematuria, No urgency Skin: No rash, No skin related problems, No ulcerations Psychiatric/Neurological: No anxiety, No depression, No seizure, No focal weakness, No syncope Hematologic: No bleeding abnormalities [id number] Hx Patient Social History Alcohol Use: Denies Use Recreational Drug Use: No Smoking Status: Current Everyday Smoker Type Used: Cigarettes 2nd Hand Smoke Exposure: Yes Recent Foreign Travel: No Recent Infectious Disease Expo: No Immunizations Up To Date Tetanus Booster (TDap): Unknown Date of Pneumonia Vaccine: May 28, 2011 Date of Influenza Vaccine: Apr 30, 2020 Past Medical History PMH As described under Assessment. Allergies and Home Medications Allergies Coded Allergies: Penicillins (Unverified Adverse Reaction, Severe, COMA, 01/28/11) erythromycin base (Unverified Adverse Reaction, Intermediate, TONGUE SWELLING, 01/28/11) Sulfa (Sulfonamide Antibiotics) (Unverified Adverse Reaction, Mild, HIVES, 01/28/11) Home Medications Mometasone Furoate 15 Gm Cream.gm., 15 GM TP TID Prescribed by: PIERO OLEARY on 01/28/112207 Naproxen Sodium 220 Mg Capsule, 1 TAB PO PRN, (Reported) Prednisone 20 Mg Tab, 40 MG PO DAILY Prescribed by: PIERO OLEARY on 01/28/112207 Patient Home Medication List Home Medication List Reviewed: Yes Physical Exam-Cardiology Physical Exam Vital Signs/I&O 05/28/20 05/28/20 05/28/20 05/28/20 06:45 06:45 12:40 13:30 Temp 36.3 36.3 Pulse 120 107 101 Resp 18 18 B/P (MAP) 125/90 (102) 135/90 (102) Pulse Ox 98 98 96 O2 Delivery Non Rebreather Non Rebreather Nasal Cannula O2 Flow Rate 15.00 15.00 5.00 05/28/20 05/28/20 14:30 16:23 Temp 36.3 Pulse 101 Pulse Ox 96 O2 Delivery High Flow N/C O2 Flow Rate 6.00 Capillary Refill : Less Than 3 Seconds Constitutional: appears stated age, apparent distress, well-developed, well- nourished HEENT: PERRL; No discharge; hearing is well preserved, oral hygience is good; No ulceration, No xanthelasmas are seen Neck: No carotid bruit; carotid pulses are 2 + bilaterally Respiratory: accessory muscle use, respiratory distress Cardiovascular: regular rate-rhythm, tachycardia, S1 and S2 Gastrointestinal: soft, audible bowel sounds; No spleenomegaly Rectal: deferred Extremities: normal range of motion, non-tender, normal inspection, pedal ed cherelle; No clubbing, No cyanosis, No significant edema Neurologic/Psychiatric: no motor/sensory deficits, alert, normal mood/affect, oriented x 3, power is 5/5 both on sides Skin: normal color Data Review Labs Laboratory Tests 05/28/20 06:55: White Blood Count 15.2H, Red Blood Count 5.33, Hemoglobin 16.1, Hematocrit 49, Mean Corpuscular Volume 91, Mean Corpuscular Hemoglobin 30, Mean Corpuscular Hemoglobin Concent 33, Red Cell Distribution Width 13.4, Platelet Count 280, Mean Platelet Volume 9.8, Immature Granulocyte % (Auto) 2, Neutrophils (%) (Auto) 83H, Lymphocytes (%) (Auto) 10L, Monocytes (%) (Auto) 4, Eosinophils (%) (Auto) 1, Basophils (%) (Auto) 0, Neutrophils # (Auto) 12.6H, Lymphocytes # (Auto) 1.5, Monocytes # (Auto) 0.7, Eosinophils # (Auto) 0.1, Basophils # (Auto) 0.1, Immature Granulocyte # (Auto) 0.3H, Neutrophils % (Manual) 79, Lymphocytes % (Manual) 9, Monocytes % (Manual) 6, Eosinophils % (Manual) 0, Basophils % (Manual) 0, Band Neutrophils 6, Blood Morphology Comment NORMAL, Sodium Level 130L, Potassium Level 3.7, Chloride Level 97L, Carbon Dioxide Level 12L, Anion Gap 21H, Blood Urea Nitrogen 12, Creatinine 1.27, Estimat Glomerular Filtration Rate 57, BUN/Creatinine Ratio 9, Glucose Level 284H, Lactic Acid Level 4.30*H, Calcium Level 8.9, Corrected Calcium 9.1, Total Bilirubin 1.6H, Aspartate Amino Transf (AST/SGOT) 101H, Alanine Aminotransferase (ALT/SGPT) 137H, Alkaline Phosphatase 145H, Lactate Dehydrogenase 530H, Troponin I 0.034H, C-Reactive Protein High Sensitivity 11.73H, B-Type Natriuretic Peptide 85.3, Total Protein 7.9, Albumin 3.8, Procalcitonin 0.26H 05/28/20 07:00: Coronavirus 2019 (MIKAEL) Negative 05/28/20 07:18: Prothrombin Time 16.3H, INR Comment 1.3, Activated Partial Thromboplast Time 36H , D-Dimer 19.21H 05/28/20 08:08: 05/28/20 08:45: Urine Color YELLOW, Urine Clarity CLEAR, Urine pH 6.0, Urine Specific Mcnary <=1.005, Urine Protein TRACEH, Urine Glucose (UA) NEGATIVE, Urine Ketones NEGATIVE, Urine Nitrite NEGATIVE, Urine Bilirubin NEGATIVE, Urine Urobilinogen 0.2, Urine Leukocyte Esterase NEGATIVE, Urine RBC (Auto) TRACE-L, Urine RBC RARE, Urine WBC RARE, Urine Squamous Epithelial Cells RARE, Urine Crystals PRESENTH, Urine Amorphous Sediment RARE LISA URATESH, Urine Bacteria TRACE, Urine Casts PRESENT, Urine Granular Casts RARE, Urine Mucus NEGATIVE, Urine Culture Indicated CULTURE PENDING 05/28/20 09:05: Lactic Acid Level 1.84 05/28/20 11:25: Blood Gas Puncture Site LEFT RADIAL, Blood Gas Patient Temperature 36.7, Arterial Blood pH 7.41, Arterial Blood Partial Pressure CO2 34L, Arterial Blood Partial Pressure O2 93, Arterial Blood HCO3 21L, Arterial Blood Total CO2 22.1, Arterial Blood Oxygen Saturation 97, Arterial Blood Base Excess -2.9L, Royer Test POSITIVE, Blood Gas Ventilator Setting NO, Blood Gas Inspired Oxygen 5 L 05/28/20 14:13: Troponin I 0.712*H 05/28/20 15:05: Activated Partial Thromboplast Time 64H Microbiology 05/28/20 Influenza Types A,B Antigen (IAM) - Final, Complete ECG Impression ECG Initial ECG Rhythm: S.Tach Comment Right ventricular strain pattern. A/P-Cardiology Assessment/Admission Diagnosis Recent pneumonia, Bilateral large PE, RV strain, DVT, PUI Plan Recent pneumonia, defer to the primary team. Bilateral PE with stable hemodynamics. Echocardiogram shows evidence of RV pressure and volume overload. However the patient does not meet criteria for systemic thrombolysis. He has borderline criteria for catheter directed thrombolysis. However when I spoke to the patient about the procedure he flatly refused and told me that he has had PE before and these clots will dissolve. We started him on IV heparin in the ER. I have asked the pharmacy to dose him on Eliquis for PE. Patient also has DVT. Positive troponin, RV strain, due to acute cor pulmonale. COVID PU I. Pending results. Thank you for your consultation. Please call me if you have any questions. Maryse Ramos MD, FACP, FACC, FSCAI, FHRS, CCDS Interventional Cardiology Cardiac Electrophysiology Vascular Medicine and Endovascular Interventions Clinical Quality Measures DVT/VTE Risk/Contraindication: Risk Factor Score Per Nursin RFS Level Per Nursing on Admit: 4+=Very High Valorie RAMOS MD May 28, 2020 17:47
--- NOTE | 2020-05-28 18:15 | History & Physical-Hospitalist ---
History of Present Illness HPI/Chief Complaint CC: Dyspnea HPI: This is a 64yoWM clinic pt of [facility] who presents with SOB and a syncopal episode while in the shower. SOB had been gradual but worsened abruptly. He was swabbed for Covid and that was negative but upon work up his D-dimer was 19. CT angiogram showed B/L pulmonary emboli. Ultrasound will be done on the lower extremities but he had a blood clot in his right leg a year an a half ago that produced a pulmonary emboli and he had maintained his anticoagulation for 6 months and then discontinued it and maintained on a baby aspirin. Cardiology and pulmonology have been consulted and echocardiogram shows right heart strain. Source: patient Exam Limitations: clinical condition Date Seen 05/28/20 Time Seen by a Provider: 12:30 Attending Physician Urmila Miranda William T Arnp Referring Physician Date of Admission May 28, 2020 at 10:12 Home Medications & Allergies Home Medications Reviewed patient Home Medication Reconciliation performed by pharmacy medication reconciliations critical power technician and/or nursing. Patients Allergies have been reviewed. Allergies Allergies Coded Allergies Penicillins (Unverified Adverse Reaction, Severe, COMA, 01/28/11) erythromycin base (Unverified Adverse Reaction, Intermediate, TONGUE SWELLING, 01/28/11) Sulfa (Sulfonamide Antibiotics) (Unverified Adverse Reaction, Mild, HIVES, 01/28/11) Past Nikdmsv-Pkqlrx-Rszacb Hx Past Med/Social Hx: Reviewed Nursing Past Med/Soc Hx, Reviewed and Corrections made Patient Social History Marrital Status: single Employed/Student: unemployed Alcohol Use: Denies Use Recreational Drug Use: No Smoking Status: Current Everyday Smoker Type Used: Cigarettes 2nd Hand Smoke Exposure: Yes Recent Foreign Travel: No Contact w/other who traveled: No Recent Hopitalizations: No Recent Infectious Disease Expo: No Immunizations Up To Date Tetanus Booster (TDap): Unknown Date of Pneumonia Vaccine: May 28, 2011 Date of Influenza Vaccine: Apr 30, 2020 Seasonal Allergies Seasonal Allergies: No Past Medical History Surgeries: Orthopedic Respiratory: Pulmonary Embolism Cardiac: Deep Vein Thrombosis, Hypertension History of Blood Disorders: No Review of Systems Constitutional: see HPI, dizziness, malaise, weakness Respiratory: dyspnea on exertion Cardiovascular: chest pain Physical Exam Physical Exam Vital Signs Vital Signs - First Documented 05/28/20 06:45 Temp 36.3 Pulse 120 Resp 18 B/P (MAP) 125/90 (102) Pulse Ox 98 O2 Delivery Non Rebreather O2 Flow Rate 15.00 Capillary Refill : Less Than 3 Seconds Height, Weight, BMI Height: 5'10.00" Weight: 207lbs. oz. 93.733319ev; 29.38 BMI Method:Stated General Appearance: No Apparent Distress Eyes: Right Eye Normal Inspection, Right Eye PERRL HEENT: PERRL/EOMI, TMs Normal, Normal ENT Inspection, Pharynx Normal, Moist Mucous Membranes Neck: Full Range of Motion, Normal Inspection, Non Tender Respiratory: Chest Non Tender, Lungs Clear, Normal Breath Sounds, No Accessory Muscle Use, No Respiratory Distress Cardiovascular: Regular Rate, Rhythm, No Edema, No Gallop, No JVD, No Murmur, Normal Peripheral Pulses Gastrointestinal: Normal Bowel Sounds, No Organomegaly, No Pulsatile Mass, Non Tender, Soft Back: Normal Inspection, No CVA Tenderness, No Vertebral Tenderness Extremity: Normal Capillary Refill, Normal Inspection, Normal Range of Motion, Non Tender, No Calf Tenderness, No Pedal Edema Neurologic/Psychiatric: Alert, Oriented x3, No Motor/Sensory Deficits, Normal Mood/Affect Skin: Normal Color, Warm/Dry Lymphatic: No Adenopathy Results Results/Procedures Labs Laboratory Tests 05/28/20 06:55 05/29/20 00:12 Patient resulted labs reviewed. Assessment/Plan Admission Diagnosis Assessment: SYncope Hypoxia PE DVT/PE 1/5 years ago completed 6 months of OAC then stopped SMoker HTN Plan: Heparin Cardiiology consultation Admission Status: Inpatient Order (span 2 midnights) Reason for Inpatient Admission: PE Diagnosis/Problems Diagnosis/Problems (1) Bilateral pulmonary embolism Status: Acute (2) Hypoxia Status: Acute Clinical Quality Measures DVT/VTE Risk/Contraindication: Risk Factor Score Per Nursin RFS Level Per Nursing on Admit: 4+=Very High URMILA MIRANDA DO May 28, 2020 18:15
--- NOTE | 2020-05-28 20:00 | NUR ---
DR. ACOSTA NOTIFIED OF CRITICAL TROPONIN LEVEL OF 0.587. NO NEW ORDERS AT THIS TIME.
[2020-05-29 00:25] LABS: BASOPHILS # (AUTO) 0.1 10^3/uL (0.0-0.1); BASOPHILS % (AUTO) 0 % (0-10); EOSINOPHILS # (AUTO) 0.1 10^3/uL (0.0-0.3); EOSINOPHILS % (AUTO) 0 % (0-10); HEMATOCRIT 44 % (40-54); HEMOGLOBIN 14.4 g/dL (13.3-17.7); LYMPHOCYTES # (AUTO) 1.5 10^3/uL (1.0-4.0); LYMPHOCYTES % (AUTO) 7 % (12-44); MEAN CORPUSCULAR HEMOGLOBIN 30 pg (25-34); MEAN CORPUSCULAR HGB CONC 33 g/dL (32-36); MEAN CORPUSCULAR VOLUME 93 fL (80-99); MEAN PLATELET VOLUME 9.7 fL (9.0-12.2); MONOCYTES # (AUTO) 1.5 10^3/uL (0.0-1.0); MONOCYTES % (AUTO) 7 % (0-12); NEUTROPHILS # (AUTO) 18.1 10^3/uL (1.8-7.8); NEUTROPHILS % (AUTO) 85 % (42-75); PLATELET COUNT 226 10^3/uL (130-400); WHITE BLOOD COUNT 21.4 10^3/uL (4.3-11.0)
[2020-05-29 00:38] LABS: ALBUMIN 3.4 GM/DL (3.2-4.5); CHLORIDE 106 MMOL/L (98-107); POTASSIUM 3.8 MMOL/L (3.6-5.0); SODIUM 135 MMOL/L (135-145)
[2020-05-29 00:39] LABS: CALCIUM 8.4 MG/DL (8.5-10.1)
[2020-05-29 00:40] LABS: GLUCOSE 123 MG/DL (70-105); TOTAL PROTEIN 6.9 GM/DL (6.4-8.2)
[2020-05-29 00:41] LABS: CARBON DIOXIDE 17 MMOL/L (21-32)
[2020-05-29 00:42] LABS: BILIRUBIN,TOTAL 0.9 MG/DL (0.1-1.0)
[2020-05-29 00:44] LABS: ALKALINE PHOSPHATASE 130 U/L (40-136); CREATININE SERUM 0.79 MG/DL (0.60-1.30); GFR ESTIMATED > 60
[2020-05-29 00:45] LABS: BUN/CREATININE RATIO 14
[2020-05-29 00:47] LABS: ALANINE AMINOTRANSFERASE 100 U/L (0-55)
[2020-05-29] MEDS: MEROPENEM 500 MG/SWFI 10 ML IV PUSH IV SCH ×8 (04:22→18:46)
[2020-05-29] MEDS: RT-ALBUTEROL INHALER HFA (VENTOLIN HFA) 18 GM IH SCH ×4 (05:19→20:50)
--- NOTE | 2020-05-29 10:41 | NUR ---
SPOKE WITH THE PT TO COMPLETE THE MED REC PT DENIES TAKING ANY PRESCRIPTION OR OTC MEDICATIONS
--- NOTE | 2020-05-29 10:55 | Progress Note - Hospitalist ---
LUISAMICHAEL MED STUDENT 05/29/20 1054: Subjective HPI/CC On Admission Date Seen by Provider: May 29, 2020 Time Seen by Provider: 08:40 CC: Dyspnea HPI: This is a 64yoWM clinic pt of [facility] who presents with SOB and a syncopal episode while in the shower. SOB had been gradual but worsened abruptly. He was swabbed for Covid and that was negative but upon work up his D-dimer was 19. CT angiogram showed B/L pulmonary emboli. Ultrasound will be done on the lower extremities but he had a blood clot in his right leg a year an a half ago that produced a pulmonary emboli and he had maintained his anticoagulation for 6 months and then discontinued it and maintained on a baby aspirin. Cardiology and pulmonology have been consulted and echocardiogram shows right heart strain. Subjective/Events-last exam Pt states that he feels tired this morning and is in some pain. He states that he has diffuse abdominal pain all over his abdomen this morning. It hurts when he coughs and he believes it is likely from all the coughing he is doing. He also complains of a sore throat for the same reasons. He has not had any food to eat this morning. LBM yesterday and denies and constipation or diarrhea. He states he is able to walk around okay but easily becomes SOB with activity. He will continue to stay in the hospital until there is improvement of his embolism. He does not complain of any NVD, headahces, chest pain, new joint pain or rashes. Focused Exam Lactate Level 05/28/20 06:55: Lactic Acid Level 4.30*H 05/28/20 09:05: Lactic Acid Level 1.84 Time of Focused Exam: 10:05 Objective Exam Vital Signs Vital Signs Date Time Temp Pulse Resp B/P (MAP) Pulse Ox O2 Delivery O2 Flow Rate FiO2 05/29/20 10:09 93 Nasal Cannula 7.00 05/29/20 10:00 37.1 96 26 154/94 Capillary Refill : Less Than 3 Seconds General Appearance: No Apparent Distress, WD/WN HEENT: PERRL/EOMI Neck: Full Range of Motion Respiratory: Chest Non Tender, Lungs Clear, Normal Breath Sounds, No Accessory Muscle Use, No Respiratory Distress Cardiovascular: Regular Rate, Rhythm, No Edema, No Gallop, No JVD, No Murmur, Normal Peripheral Pulses Gastrointestinal: No Organomegaly, Soft Rectal: Deferred Extremity: Normal Inspection Neurologic/Psychiatric: Alert, Oriented x3 Skin: Normal Color, Warm/Dry Lymphatic: No Adenopathy Results/Procedures Lab Laboratory Tests 05/29/20 00:12 Patient resulted labs reviewed. Assessment/Plan Assessment and Plan Assess & Plan/Chief Complaint Bilateral Pulmonary Edema Bilateral LE DVT Continue to run heparin drip Continue to monitor Pt O2 status Daily labs CBC CMP Watch for any signs of worsening SOB Initiate lifelong blood thinner therapy Diagnosis/Problems Diagnosis/Problems (1) DVT, bilateral lower limbs (2) DVT prophylaxis (3) Hypoxia Status: Acute (4) Bilateral pulmonary embolism Status: Acute Clinical Quality Measures DVT/VTE Risk/Contraindication: Risk Factor Score Per Nursin RFS Level Per Nursing on Admit: 4+=Very High Supervisory-Addendum Brief Verification & Attestation Participated in pt care: history, physical Personally performed: exam, history Care discussed with: other Procedures: n/a URMILA PUGA DO 05/29/20 2019: Subjective Subjective/Events-last exam Patient dyspneic with activity Conferred with Dr Ramos O2 maintained Labs reviewed Review of Systems General: Fatigue, Malaise Pulmonary: Dyspnea Cardiovascular: Chest Pain Neurological: Weakness Objective Exam General Appearance: No Apparent Distress, WD/WN, Anxious, Chronically ill Respiratory: No Accessory Muscle Use, No Respiratory Distress Cardiovascular: Regular Rate, Rhythm, No Edema, No Gallop, No JVD, No Murmur, Normal Peripheral Pulses Neurologic/Psychiatric: Alert, Oriented x3, No Motor/Sensory Deficits, Normal Mood/Affect Assessment/Plan Assessment and Plan Assess & Plan/Chief Complaint Heparin drip Monitor O2 sats Home meds Diagnosis/Problems Diagnosis/Problems (1) Bilateral pulmonary embolism Status: Acute (2) DVT, bilateral lower limbs (3) DVT prophylaxis (4) Hypoxia Status: Acute Supervisory-Addendum Brief Verification & Attestation Participated in pt care: history, MDM, physical Personally performed: exam, history, MDM, supervision of care Care discussed with: Medical Student Procedures: n/a Results interpretation: Verified all documentation Verification and Attestation of Medical Student E/M Service A medical student performed and documented this service in my presence. I reviewed and verified all information documented by the medical student and made modifications to such information, when appropriate. I personally performed the physical exam and medical decision making. Urmila Puga, May 29, 2020,20:18 MICHAEL MORAN MED STUDENT May 29, 2020 10:54 URMILA PUGA DO May 29, 2020 20:19
[2020-05-29] MEDS: APIXABAN 5 MG (ELIQUIS) TABLET PO SCH ×2 (11:01→20:44)
--- NOTE | 2020-05-29 13:46 | Cardiology Progress Note ---
Cardiology SOAP Progress Note Subjective: still short of breath but slightly improved. Objective: I&O/Vital Signs 05/29/20 05/29/20 05/29/20 05/29/20 04:00 04:47 06:22 07:00 Temp 37.1 37.0 Pulse 97 97 99 Resp 20 20 B/P (MAP) 148/91 147/96 Pulse Ox 94 94 93 O2 Delivery Nasal Cannula Nasal Cannula Nasal Cannula O2 Flow Rate 6.00 6.00 6.00 05/29/20 05/29/20 05/29/20 05/29/20 07:31 08:00 09:00 10:00 Temp 36.8 37.1 Pulse 99 96 Resp 21 26 B/P (MAP) 149/92 154/94 Pulse Ox 93 94 93 93 O2 Delivery Nasal Cannula Nasal Cannula High Flow N/C High Flow N/C O2 Flow Rate 6.00 6.00 6.00 6.00 05/29/20 05/29/20 05/29/20 05/29/20 10:09 12:00 12:00 13:00 Temp 37.1 Pulse 109 110 B/P (MAP) 150/87 Pulse Ox 93 O2 Delivery Nasal Cannula High Flow N/C High Flow N/C O2 Flow Rate 7.00 6.00 6.00 05/29/20 00:00 Intake Total 1160 ml Output Total 2050 ml Balance -890 ml Weight (Pounds): 207 Weight (Calculated Kilograms): 93.825754 Constitutional: appears stated age, apparent distress, well-developed, well- nourished Respiratory: accessory muscle use, respiratory distress Cardiovascular: regular rate-rhythm, tachycardia, S1 and S2 Gastrointestional: soft, audible bowel sounds; No spleenomegaly Extremities: normal range of motion, non-tender, normal inspection, pedal edema; No clubbing, No cyanosis, No significant edema Neurologic/Psychiatric: no motor/sensory deficits, alert, normal mood/affect, oriented x 3, power is 5/5 both on sides Skin: normal color Results/Procedures: Labs Laboratory Tests 05/28/20 14:13: Troponin I 0.712*H 05/28/20 15:05: Activated Partial Thromboplast Time 64H 05/28/20 18:06: Activated Partial Thromboplast Time 55H 05/28/20 19:55: Troponin I 0.587*H 05/29/20 00:12: White Blood Count 21.4H, Red Blood Count 4.75, Hemoglobin 14.4, Hematocrit 44, Mean Corpuscular Volume 93, Mean Corpuscular Hemoglobin 30, Mean Corpuscular Hemoglobin Concent 33, Red Cell Distribution Width 13.7, Platelet Count 226, Mean Platelet Volume 9.7, Immature Granulocyte % (Auto) 1, Neutrophils (%) (Auto) 85H, Lymphocytes (%) (Auto) 7L, Monocytes (%) (Auto) 7, Eosinophils (%) (Auto) 0, Basophils (%) (Auto) 0, Neutrophils # (Auto) 18.1H, Lymphocytes # (Auto) 1.5, Monocytes # (Auto) 1.5H, Eosinophils # (Auto) 0.1, Basophils # (Auto) 0.1, Immature Granulocyte # (Auto) 0.2H, Sodium Level 135, Potassium Level 3.8, Chloride Level 106, Carbon Dioxide Level 17L, Anion Gap 12, Blood Urea Nitrogen 11, Creatinine 0.79, Estimat Glomerular Filtration Rate > 60, BUN/Creatinine Ratio 14, Glucose Level 123H, Calcium Level 8.4L, Corrected Calcium 8.9, Total Bilirubin 0.9, Aspartate Amino Transf (AST/SGOT) 43H, Alanine Aminotransferase (ALT/SGPT) 100H, Alkaline Phosphatase 130, Total Protein 6.9, Albumin 3.4 05/29/20 06:12: Activated Partial Thromboplast Time 43H 05/29/20 12:25: Activated Partial Thromboplast Time 54H Microbiology 05/28/20 Urine Culture - Final, Complete NO GROWTH 05/28/20 Influenza Types A,B Antigen (IAM) - Final, Complete A/P: Assessment/Dx: Recent pneumonia, Bilateral large PE, RV strain, DVT, PUI Plan: Recent pneumonia, defer to the primary team. Bilateral PE with stable hemodynamics. Echocardiogram shows evidence of RV pressure and volume overload. However the patient does not meet criteria for systemic thrombolysis. He has borderline criteria for catheter directed thrombolysis. However when I spoke to the patient about the procedure he flatly refused and told me that he has had PE before and these clots will dissolve. We started him on IV heparin in the ER. I have asked the pharmacy to dose him on Eliquis for PE. Patient also has DVT. Positive troponin, RV strain, due to acute cor pulmonale. negative COVID-19. Thank you for your consultation. Please call me if you have any questions. Maryse Ramos MD, FACP, FACC, FSCAI, FHRS, CCDS Interventional Cardiology Cardiac Electrophysiology Vascular Medicine and Endovascular Interventions Focused Exam Lactate Level 05/28/20 06:55: Lactic Acid Level 4.30*H 05/28/20 09:05: Lactic Acid Level 1.84 Time of Focused Exam: 10:05 Valorie RAMOS MD May 29, 2020 13:46
[2020-05-29] MEDS: HYDROcodone/APAP 5 MG/325 MG (LORTAB) TAB PO PRN (14:59)
[2020-05-29] MEDS: NS IV 1000 ML 1,000 ML IV SCH ×2 (17:46→19:50)
[2020-05-30] MEDS: MEROPENEM 500 MG/SWFI 10 ML IV PUSH IV SCH ×10 (00:05→23:58)
[2020-05-30] MEDS: RT-ALBUTEROL INHALER HFA (VENTOLIN HFA) 18 GM IH SCH ×4 (02:20→19:14)
[2020-05-30] MEDS: NS IV 1000 ML 1,000 ML IV SCH (04:30)
[2020-05-30 06:37] LABS: BASOPHILS # (AUTO) 0.1 10^3/uL (0.0-0.1); BASOPHILS % (AUTO) 0 % (0-10); EOSINOPHILS # (AUTO) 0.1 10^3/uL (0.0-0.3); EOSINOPHILS % (AUTO) 0 % (0-10); HEMATOCRIT 42 % (40-54); HEMOGLOBIN 13.7 g/dL (13.3-17.7); LYMPHOCYTES # (AUTO) 1.3 10^3/uL (1.0-4.0); LYMPHOCYTES % (AUTO) 6 % (12-44); MEAN CORPUSCULAR HEMOGLOBIN 30 pg (25-34); MEAN CORPUSCULAR HGB CONC 32 g/dL (32-36); MEAN CORPUSCULAR VOLUME 94 fL (80-99); MEAN PLATELET VOLUME 9.9 fL (9.0-12.2); MONOCYTES # (AUTO) 1.2 10^3/uL (0.0-1.0); MONOCYTES % (AUTO) 5 % (0-12); NEUTROPHILS % (AUTO) 87 % (42-75); PLATELET COUNT 216 10^3/uL (130-400); WHITE BLOOD COUNT 22.9 10^3/uL (4.3-11.0)
--- NOTE | 2020-05-30 06:48 | Progress Note - Hospitalist ---
Subjective HPI/CC On Admission Date Seen by Provider: May 30, 2020 Time Seen by Provider: 11:00 CC: Dyspnea HPI: This is a 64yoWM clinic pt of [facility] who presents with SOB and a syncopal episode while in the shower. SOB had been gradual but worsened abruptly. He was swabbed for Covid and that was negative but upon work up his D-dimer was 19. CT angiogram showed B/L pulmonary emboli. Ultrasound will be done on the lower ex tremities but he had a blood clot in his right leg a year an a half ago that produced a pulmonary emboli and he had maintained his anticoagulation for 6 months and then discontinued it and maintained on a baby aspirin. Cardiology and pulmonology have been consulted and echocardiogram shows right heart strain. Subjective/Events-last exam Patient doing better 3L/min of O2 maintained Abx maintained for PNA empiric treatment Now on OAC off hep gtts Hydrocodone helped his pain Not eating so will drink Ensure so I ordered it CXR is worse Cough is productive Review of Systems Pulmonary: Dyspnea, Cough Focused Exam Lactate Level 05/28/20 06:55: Lactic Acid Level 4.30*H 05/28/20 09:05: Lactic Acid Level 1.84 Time of Focused Exam: 10:05 Objective Exam Vital Signs Vital Signs Date Time Temp Pulse Resp B/P (MAP) Pulse Ox O2 Delivery O2 Flow Rate FiO2 05/30/20 14:00 95 22 141/86 93 High Flow N/C 3.00 05/30/20 08:00 36.3 Capillary Refill : Less Than 3 Seconds General Appearance: No Apparent Distress, WD/WN, Anxious, Chronically ill Respiratory: Chest Non Tender, Lungs Clear, No Accessory Muscle Use, No Respiratory Distress, Decreased Breath Sounds Cardiovascular: Regular Rate, Rhythm Neurologic/Psychiatric: Alert, Oriented x3, No Motor/Sensory Deficits, Normal Mood/Affect Results/Procedures Lab Laboratory Tests 05/30/20 06:30 Patient resulted labs reviewed. Assessment/Plan Assessment and Plan Assess & Plan/Chief Complaint Assessment: Bilateral PE from B/L DVT PNA COPD Former smoker quit recently Plan: Monitor closely OAC O2 Sputum Cx Diagnosis/Problems Diagnosis/Problems (1) Bilateral pulmonary embolism Status: Acute (2) DVT, bilateral lower limbs (3) DVT prophylaxis (4) Hypoxia Status: Acute Clinical Quality Measures DVT/VTE Risk/Contraindication: Risk Factor Score Per Nursin RFS Level Per Nursing on Admit: 4+=Very High ERIKA PUGA DO May 30, 2020 06:48
[2020-05-30 06:49] LABS: ALBUMIN 3.1 GM/DL (3.2-4.5)
[2020-05-30 06:50] LABS: CHLORIDE 102 MMOL/L (98-107); POTASSIUM 4.1 MMOL/L (3.6-5.0); SODIUM 133 MMOL/L (135-145)
[2020-05-30 06:51] LABS: CALCIUM 8.4 MG/DL (8.5-10.1)
[2020-05-30 06:52] LABS: GLUCOSE 140 MG/DL (70-105)
[2020-05-30 06:53] LABS: CARBON DIOXIDE 19 MMOL/L (21-32)
[2020-05-30 06:54] LABS: BILIRUBIN,TOTAL 1.2 MG/DL (0.1-1.0)
[2020-05-30 06:55] LABS: ALKALINE PHOSPHATASE 153 U/L (40-136)
[2020-05-30 06:56] LABS: CREATININE SERUM 0.74 MG/DL (0.60-1.30); GFR ESTIMATED > 60
[2020-05-30 06:57] LABS: BUN/CREATININE RATIO 8
[2020-05-30 06:59] LABS: ALANINE AMINOTRANSFERASE 75 U/L (0-55)
[2020-05-30] MEDS: HYDROcodone/APAP 5 MG/325 MG (LORTAB) TAB PO PRN ×2 (07:01→20:43)
[2020-05-30] MEDS: APIXABAN 5 MG (ELIQUIS) TABLET PO SCH ×2 (08:52→20:41)
--- NOTE | 2020-05-30 12:37 | Diagnostic Imaging Report ---
INDICATION: Abnormal lung sounds. Comparison made to prior examination 05/28/2020. FINDINGS: There is cardiomegaly. There are patchy bibasilar infiltrates. There is no pneumothorax. Mediastinum is unremarkable. IMPRESSION: Slightly increased patchy bibasilar pulmonary infiltrates. Dictated by: Dictated on workstation # [id number]
--- NOTE | 2020-05-30 15:24 | Cardiology Progress Note ---
Cardiology SOAP Progress Note Subjective: Decreased oxygen requirement overnight. Objective: I&O/Vital Signs 05/30/20 05/30/20 05/30/20 05/30/20 04:05 06:00 07:00 08:00 Temp 36.8 36.7 36.3 Pulse 102 100 99 92 Resp 24 24 22 B/P (MAP) 137/87 118/76 111/80 Pulse Ox 94 93 94 O2 Delivery High Flow N/C High Flow N/C High Flow N/C O2 Flow Rate 3.00 3.00 3.00 05/30/20 05/30/20 05/30/20 05/30/20 08:00 08:00 10:00 10:40 Pulse 112 Resp 22 B/P (MAP) 122/85 Pulse Ox 95 95 98 95 O2 Delivery High Flow N/C High Flow N/C High Flow N/C Nasal Cannula O2 Flow Rate 2.00 3.00 3.00 3.00 05/30/20 05/30/20 05/30/20 05/30/20 12:00 12:00 12:49 13:20 Pulse 103 98 Resp 24 B/P (MAP) 122/79 Pulse Ox 93 O2 Delivery High Flow N/C High Flow N/C O2 Flow Rate 3.00 3.00 05/30/20 14:00 Pulse 95 Resp 22 B/P (MAP) 141/86 Pulse Ox 93 O2 Delivery High Flow N/C O2 Flow Rate 3.00 05/30/20 00:00 Intake Total 1690 ml Output Total 950 ml Balance 740 ml Weight (Pounds): 207 Weight (Calculated Kilograms): [id number] Constitutional: appears stated age, apparent distress, well-developed, well- nourished Respiratory: accessory muscle use, respiratory distress Cardiovascular: regular rate-rhythm, tachycardia, S1 and S2 Gastrointestional: soft, audible bowel sounds; No spleenomegaly Extremities: normal range of motion, non-tender, normal inspection, pedal edema; No clubbing, No cyanosis, No significant edema Neurologic/Psychiatric: no motor/sensory deficits, alert, normal mood/affect, oriented x 3, power is 5/5 both on sides Skin: normal color Results/Procedures: Labs Laboratory Tests 05/29/20 18:11: Activated Partial Thromboplast Time 36H 05/30/20 00:00: Activated Partial Thromboplast Time 44H 05/30/20 06:30: Activated Partial Thromboplast Time 39H, White Blood Count 22.9H, Red Blood Count 4.52, Hemoglobin 13.7, Hematocrit 42, Mean Corpuscular Volume 94, Mean Corpuscular Hemoglobin 30, Mean Corpuscular Hemoglobin Concent 32, Red Cell Distribution Width 13.9, Platelet Count 216, Mean Platelet Volume 9.9, Immature Granulocyte % (Auto) 1, Neutrophils (%) (Auto) 87H, Lymphocytes (%) (Auto) 6L, Monocytes (%) (Auto) 5, Eosinophils (%) (Auto) 0, Basophils (%) (Auto) 0, Neutrophils # (Auto) 20.0H, Lymphocytes # (Auto) 1.3, Monocytes # (Auto) 1.2H, Eosinophils # (Auto) 0.1, Basophils # (Auto) 0.1, Immature Granulocyte # (Auto) 0.2H, Sodium Level 133L, Potassium Level 4.1, Chloride Level 102, Carbon Dioxide Level 19L, Anion Gap 12, Blood Urea Nitrogen 6L, Creatinine 0.74, Estimat Glomerular Filtration Rate > 60, BUN/Creatinine Ratio 8, Glucose Level 140H, Calcium Level 8.4L, Corrected Calcium 9.1, Total Bilirubin 1.2H, Aspartate Amino Transf (AST/SGOT) 41H, Alanine Aminotransferase (ALT/SGPT) 75H, Alkaline Phosphatase 153H, Total Protein 7.0, Albumin 3.1L 05/30/20 12:09: Activated Partial Thromboplast Time 41H Microbiology 05/28/20 Urine Culture - Final, Complete NO GROWTH 05/28/20 Blood Culture - Preliminary, Resulted No growth 05/28/20 Influenza Types A,B Antigen (IAM) - Final, Complete A/P: Assessment/Dx: Recent pneumonia, Bilateral large PE, RV strain, DVT, PUI Plan: Recent pneumonia, defer to the primary team. Bilateral PE with stable hemodynamics. Echocardiogram shows evidence of RV pressure and volume overload. However the patient does not meet criteria for systemic thrombolysis. He has borderline criteria for catheter directed thrombolysis. However when I spoke to the patient about the procedure he flatly refused and told me that he has had PE before and these clots will dissolve. High dose Eliquis for 7 days followed by Eliquis 5 mg twice a day long-term. 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 Will likely require hypercoagulable workup as an outpatient. Patient also has DVTs. COPD, will require outpatient follow-up with pulmonology. Positive troponin, RV strain, due to acute cor pulmonale. negative COVID-19. Thank you for your consultation. Please call me if you have any questions. Maryse Ramos MD, FACP, FACC, FSCAI, FHRS, CCDS Interventional Cardiology Cardiac Electrophysiology Vascular Medicine and Endovascular Interventions Focused Exam Lactate Level 05/28/20 06:55: Lactic Acid Level 4.30*H 05/28/20 09:05: Lactic Acid Level 1.84 Time of Focused Exam: 10:05 Valorie RAMOS MD May 30, 2020 15:24
[2020-05-31] MEDS: RT-ALBUTEROL INHALER HFA (VENTOLIN HFA) 18 GM IH SCH ×3 (02:06→18:46)
[2020-05-31 03:09] LABS: BASOPHILS # (AUTO) 0.1 10^3/uL (0.0-0.1); BASOPHILS % (AUTO) 0 % (0-10); EOSINOPHILS # (AUTO) 0.2 10^3/uL (0.0-0.3); EOSINOPHILS % (AUTO) 1 % (0-10); HEMATOCRIT 41 % (40-54); HEMOGLOBIN 13.3 g/dL (13.3-17.7); LYMPHOCYTES # (AUTO) 1.5 10^3/uL (1.0-4.0); LYMPHOCYTES % (AUTO) 10 % (12-44); MEAN CORPUSCULAR HEMOGLOBIN 30 pg (25-34); MEAN CORPUSCULAR HGB CONC 33 g/dL (32-36); MEAN CORPUSCULAR VOLUME 93 fL (80-99); MEAN PLATELET VOLUME 9.8 fL (9.0-12.2); MONOCYTES # (AUTO) 1.2 10^3/uL (0.0-1.0); MONOCYTES % (AUTO) 8 % (0-12); NEUTROPHILS # (AUTO) 11.7 10^3/uL (1.8-7.8); NEUTROPHILS % (AUTO) 79 % (42-75); PLATELET COUNT 230 10^3/uL (130-400); WHITE BLOOD COUNT 14.9 10^3/uL (4.3-11.0)
[2020-05-31 03:17] LABS: ALBUMIN 3.1 GM/DL (3.2-4.5); CHLORIDE 102 MMOL/L (98-107); POTASSIUM 3.5 MMOL/L (3.6-5.0); SODIUM 135 MMOL/L (135-145)
[2020-05-31 03:19] LABS: CALCIUM 8.6 MG/DL (8.5-10.1)
[2020-05-31 03:20] LABS: GLUCOSE 112 MG/DL (70-105); TOTAL PROTEIN 6.8 GM/DL (6.4-8.2)
[2020-05-31 03:21] LABS: BILIRUBIN,TOTAL 0.7 MG/DL (0.1-1.0); CARBON DIOXIDE 21 MMOL/L (21-32)
[2020-05-31 03:23] LABS: ALKALINE PHOSPHATASE 164 U/L (40-136); GFR ESTIMATED > 60
[2020-05-31 03:24] LABS: BUN/CREATININE RATIO 13
[2020-05-31 03:26] LABS: ALANINE AMINOTRANSFERASE 79 U/L (0-55)
[2020-05-31] MEDS: MEROPENEM 500 MG/SWFI 10 ML IV PUSH IV SCH ×6 (05:46→19:53)
[2020-05-31] MEDS: APIXABAN 5 MG (ELIQUIS) TABLET PO SCH ×2 (08:34→19:53)
[2020-05-31] MEDS ORDERED: ANIDULAFUNGIN INJECTION 200 MG in NS (IVPB) 250 ML IV ONE (11:00)
--- NOTE | 2020-05-31 11:13 | Progress Note - Hospitalist ---
Subjective HPI/CC On Admission Date Seen by Provider: May 31, 2020 Time Seen by Provider: 11:30 CC: Dyspnea HPI: This is a 64yoWM clinic pt of [facility] who presents with SOB and a syncopal episode while in the shower. SOB had been gradual but worsened abruptly. He was swabbed for Covid and that was negative but upon work up his D-dimer was 19. CT angiogram showed B/L pulmonary emboli. Ultrasound will be done on the lower ex tremities but he had a blood clot in his right leg a year an a half ago that produced a pulmonary emboli and he had maintained his anticoagulation for 6 months and then discontinued it and maintained on a baby aspirin. Cardiology and pulmonology have been consulted and echocardiogram shows right heart strain. Subjective/Events-last exam Patient doing better Most of the time he does not wear his O2 since he is a mouth breather PCT elevated to 1 up from 0.3 so will add Vanc and panculture and check CXR and ABG OAC tolerated well Minimal activity noted Review of Systems General: Fatigue Pulmonary: Dyspnea Focused Exam Lactate Level 05/31/20 11:45: Lactic Acid Level 1.06 Time of Focused Exam: 10:05 Objective Exam Vital Signs Vital Signs Date Time Temp Pulse Resp B/P (MAP) Pulse Ox O2 Delivery O2 Flow Rate FiO2 05/31/20 15:49 36.4 87 24 133/81 93 High Flow N/C 3.00 Capillary Refill : Less Than 3 Seconds General Appearance: No Apparent Distress, WD/WN, Chronically ill Respiratory: No Accessory Muscle Use, No Respiratory Distress, Decreased Breath Sounds Cardiovascular: Regular Rate, Rhythm, No Edema, No Gallop, No JVD, No Murmur, Normal Peripheral Pulses Neurologic/Psychiatric: Alert, Oriented x3, No Motor/Sensory Deficits, Normal Mood/Affect Results/Procedures Lab Laboratory Tests 05/31/20 03:00 Patient resulted labs reviewed. Assessment/Plan Assessment and Plan Assess & Plan/Chief Complaint Assessment: Bilateral PE from B/L DVT PNA COPD Former smoker quit recently Plan: Monitor closely OAC O2 Sputum Cx 05/31/20: Add Vanc Letty maintained O2 [facility] Sputum CXR reviewed Diagnosis/Problems Diagnosis/Problems (1) Bilateral pulmonary embolism Status: Acute (2) DVT, bilateral lower limbs (3) DVT prophylaxis (4) Hypoxia Status: Acute Clinical Quality Measures DVT/VTE Risk/Contraindication: Risk Factor Score Per Nursin RFS Level Per Nursing on Admit: 4+=Very High ERIKA PUGA DO May 31, 2020 11:13
[2020-05-31] MEDS ORDERED: VANCOMYCIN INJECTION 1,750 MG in NS IV 500 ML 500 ML IV NR (11:18)
[2020-05-31 12:35] LABS: ABG BASE EXCESS 2.6 MMOL/L (-2.5-2.5); ABG OXYGEN SATURATION 97 % (94-100); ABG PCO2 38 MMHG (35-45); ABG PH 7.46 (7.37-7.43); ABG PO2 91 MMHG (79-93); ABG TCO2 27.5 MMOL/L (21.0-31.0)
[2020-05-31 12:36] LABS: ALLENS TEST YES-POS; INSPIRED O2 3; PATIENT TEMP 36.8; VENTILATOR NO
--- NOTE | 2020-05-31 12:42 | Cardiology Progress Note ---
Cardiology SOAP Progress Note Subjective: Much improved. Objective: I&O/Vital Signs 05/31/20 05/31/20 05/31/20 05/31/20 01:00 02:00 02:06 04:00 Pulse 91 83 Resp 22 B/P (MAP) 134/81 Pulse Ox 94 93 O2 Delivery High Flow N/C Nasal Cannula High Flow N/C O2 Flow Rate 3.00 3.00 05/31/20 05/31/20 05/31/20 05/31/20 04:00 07:00 08:00 08:00 Temp 36.6 Pulse 81 78 75 Resp 19 17 B/P (MAP) 121/78 127/87 Pulse Ox 94 94 96 O2 Delivery High Flow N/C High Flow N/C O2 Flow Rate 3.00 3.00 05/31/20 05/31/20 05/31/20 05/31/20 08:00 12:00 12:00 12:09 Temp 36.8 Pulse 90 77 Resp 18 B/P (MAP) 139/87 Pulse Ox 93 O2 Delivery High Flow N/C High Flow N/C High Flow N/C O2 Flow Rate 3.00 3.00 3.00 05/31/20 00:00 Intake Total 730 ml Output Total 1350 ml Balance -620 ml Weight (Pounds): 207 Weight (Calculated Kilograms): 93.343894 Constitutional: appears stated age, apparent distress, well-developed, well- nourished Respiratory: accessory muscle use, respiratory distress Cardiovascular: regular rate-rhythm, tachycardia, S1 and S2 Gastrointestional: soft, audible bowel sounds; No spleenomegaly Extremities: normal range of motion, non-tender, normal inspection, pedal edema; No clubbing, No cyanosis, No significant edema Neurologic/Psychiatric: no motor/sensory deficits, alert, normal mood/affect, oriented x 3, power is 5/5 both on sides Skin: normal color Results/Procedures: Labs Laboratory Tests 05/30/20 18:02: Activated Partial Thromboplast Time 38H 05/31/20 03:00: White Blood Count 14.9H, Red Blood Count 4.39, Hemoglobin 13.3, Hematocrit 41, Mean Corpuscular Volume 93, Mean Corpuscular Hemoglobin 30, Mean Corpuscular Hemoglobin Concent 33, Red Cell Distribution Width 13.6, Platelet Count 230, Mean Platelet Volume 9.8, Immature Granulocyte % (Auto) 1, Neutrophils (%) (Auto) 79H, Lymphocytes (%) (Auto) 10L, Monocytes (%) (Auto) 8, Eosinophils (%) (Auto) 1, Basophils (%) (Auto) 0, Neutrophils # (Auto) 11.7H, Lymphocytes # (Auto) 1.5, Monocytes # (Auto) 1.2H, Eosinophils # (Auto) 0.2, Basophils # (Auto) 0.1, Immature Granulocyte # (Auto) 0.1, Sodium Level 135, Potassium Level 3.5L, Chloride Level 102, Carbon Dioxide Level 21, Anion Gap 12, Blood Urea Nitrogen 9, Creatinine 0.70, Estimat Glomerular Filtration Rate > 60, BUN/Creatinine Ratio 13, Glucose Level 112H, Calcium Level 8.6, Corrected Calcium 9.3, Total Bilirubin 0.7, Aspartate Amino Transf (AST/SGOT) 56H, Alanine Aminotransferase (ALT/SGPT) 79H, Alkaline Phosphatase 164H, Total Protein 6.8, A lbumin 3.1L, Procalcitonin 1.04H 05/31/20 11:45: Lactic Acid Level 1.06 05/31/20 12:25: Blood Gas Puncture Site RT RAD, Blood Gas Patient Temperature 36.8, Arterial Blood pH 7.46H, Arterial Blood Partial Pressure CO2 38, Arterial Blood Partial Pressure O2 91, Arterial Blood HCO3 26, Arterial Blood Total CO2 27.5, Arterial Blood Oxygen Saturation 97, Arterial Blood Base Excess 2.6H, Royer Test YES-POS, Blood Gas Ventilator Setting NO, Blood Gas Inspired Oxygen 3 Microbiology 05/28/20 Urine Culture - Final, Complete NO GROWTH 05/28/20 Blood Culture - Preliminary, Resulted No growth 05/28/20 Influenza Types A,B Antigen (IAM) - Final, Complete A/P: Assessment/Dx: Recent pneumonia, Bilateral large PE, RV strain, DVT, PUI Plan: Recent pneumonia, defer to the primary team. Bilateral PE with stable hemodynamics. Echocardiogram shows evidence of RV pressure and volume overload. However the patient does not meet criteria for systemic thrombolysis. He has borderline criteria for catheter directed thrombolysis. However when I spoke to the patient about the procedure he flatly refused and told me that he has had PE before and these clots will dissolve. High dose Eliquis for 7 days followed by Eliquis 5 mg twice a day long-term. 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 Will likely require hypercoagulable workup as an outpatient. Patient also has DVTs. Improving oxygen status. Currently on 3 L of oxygen. COPD, will require outpatient follow-up with pulmonology. Positive troponin, RV strain, due to acute cor pulmonale. negative COVID-19. Thank you for your consultation. Please call me if you have any questions. Maryse Ramos MD, FACP, FACC, FSCAI, FHRS, CCDS Interventional Cardiology Cardiac Electrophysiology Vascular Medicine and Endovascular Interventions Focused Exam Lactate Level 05/31/20 11:45: Lactic Acid Level 1.06 Time of Focused Exam: 10:05 Lactic Acid Level Laboratory Tests Test 05/31/20 11:45 Lactic Acid Level 1.06 MMOL/L (0.50-2.00) Valorie RAMOS MD May 31, 2020 12:42
--- NOTE | 2020-05-31 13:34 | Diagnostic Imaging Report ---
EXAMINATION: Chest 1 view HISTORY: Rales on physical exam. COMPARISON: 05/30/2020. FINDINGS: Linear opacities are seen in the bilateral lung bases. Stable enlarged cardiac silhouette. There is calcified aortic atherosclerotic plaque. No large pleural effusion or pneumothorax. IMPRESSION: 1. Increased linear opacities in the lung bases, which may represent atelectasis or infection. 2. Stable cardiomegaly. Dictated by: Dictated on workstation # [id number]
[2020-05-31] MEDS: VANCOMYCIN 1500 MG/NS 500 ML IVPB IV SCH ×2 (22:33)
[2020-05-31] MEDS: HYDROcodone/APAP 5 MG/325 MG (LORTAB) TAB PO PRN (22:33)
[2020-06-01] MEDS: MEROPENEM 500 MG/SWFI 10 ML IV PUSH IV SCH ×8 (01:11→20:17)
[2020-06-01] MEDS: RT-ALBUTEROL INHALER HFA (VENTOLIN HFA) 18 GM IH SCH ×4 (01:48→22:02)
[2020-06-01 04:13] LABS: BASOPHILS # (AUTO) 0.1 10^3/uL (0.0-0.1); BASOPHILS % (AUTO) 1 % (0-10); EOSINOPHILS # (AUTO) 0.3 10^3/uL (0.0-0.3); EOSINOPHILS % (AUTO) 4 % (0-10); HEMATOCRIT 40 % (40-54); LYMPHOCYTES # (AUTO) 1.5 10^3/uL (1.0-4.0); LYMPHOCYTES % (AUTO) 15 % (12-44); MEAN CORPUSCULAR HEMOGLOBIN 30 pg (25-34); MEAN CORPUSCULAR HGB CONC 32 g/dL (32-36); MEAN CORPUSCULAR VOLUME 94 fL (80-99); MEAN PLATELET VOLUME 9.8 fL (9.0-12.2); MONOCYTES # (AUTO) 0.6 10^3/uL (0.0-1.0); MONOCYTES % (AUTO) 6 % (0-12); NEUTROPHILS % (AUTO) 73 % (42-75); PLATELET COUNT 266 10^3/uL (130-400); WHITE BLOOD COUNT 9.6 10^3/uL (4.3-11.0)
[2020-06-01 04:20] LABS: ALBUMIN 3.1 GM/DL (3.2-4.5); CHLORIDE 103 MMOL/L (98-107); POTASSIUM 3.4 MMOL/L (3.6-5.0); SODIUM 136 MMOL/L (135-145)
[2020-06-01 04:22] LABS: CALCIUM 8.4 MG/DL (8.5-10.1)
[2020-06-01 04:23] LABS: GLUCOSE 99 MG/DL (70-105); TOTAL PROTEIN 6.7 GM/DL (6.4-8.2)
[2020-06-01 04:24] LABS: BILIRUBIN,TOTAL 0.5 MG/DL (0.1-1.0); CARBON DIOXIDE 22 MMOL/L (21-32)
[2020-06-01 04:26] LABS: ALKALINE PHOSPHATASE 154 U/L (40-136); GFR ESTIMATED > 60
[2020-06-01 04:27] LABS: BUN/CREATININE RATIO 17
[2020-06-01 04:29] LABS: ALANINE AMINOTRANSFERASE 91 U/L (0-55)
[2020-06-01] MEDS: APIXABAN 5 MG (ELIQUIS) TABLET PO SCH ×2 (08:19→20:17)
[2020-06-01] MEDS ORDERED: ANIDULAFUNGIN INJECTION 100 MG in NS (IVPB) 100 ML IV SCH (09:00)
[2020-06-01] MEDS ORDERED: KCL 10 MEQ TAB (MICRO K) PO ONE ×2 (09:45→12:26)
[2020-06-01] MEDS ORDERED: TROUGH ORDER-PHARMACY XX NR (10:30)
[2020-06-01] MEDS ORDERED: REGADENOSON 0.4 MG/5 ML SYR (LEXISCAN) IV ONE (11:15)
--- NOTE | 2020-06-01 11:21 | Progress Note - Hospitalist ---
MARISELAGREYSONALEXEYANNIE MED STUDENT 06/01/20 1120: Subjective HPI/CC On Admission Date Seen by Provider: Jun 01, 2020 Time Seen by Provider: 08:15 CC: Dyspnea HPI: This is a 64yoWM clinic pt of [facility] who presents with SOB and a syncopal episode while in the shower. SOB had been gradual but worsened abruptly. He was swabbed for Covid and that was negative but upon work up his D-dimer was 19. CT angiogram showed B/L pulmonary emboli. Ultrasound will be done on the lower extremities but he had a blood clot in his right leg a year an a half ago that produced a pulmonary emboli and he had maintained his anticoagulation for 6 months and then discontinued it and maintained on a baby aspirin. Cardiology and pulmonology have been consulted and echocardiogram shows right heart strain. Subjective/Events-last exam Patient reports improvement in his breathing today. CXR from yesterday showed linear opacities in lung base ict sales representative of atelectasis or infection. He is currently on IV Vancomycin and Meropenem. ABG shows mild respiratory alkalosis. he was mildly hypokalemic today at 3.4. Has not used O2 supplementation since yesterday and does not feel like he needs it. Focused Exam Lactate Level 05/31/20 11:45: Lactic Acid Level 1.06 Time of Focused Exam: 10:05 Objective Exam Vital Signs Vital Signs Date Time Temp Pulse Resp B/P (MAP) Pulse Ox O2 Delivery O2 Flow Rate FiO2 06/01/20 09:25 94 Room Air 06/01/20 07:30 35.7 54 20 126/84 05/31/20 20:20 3.00 3.00 Capillary Refill : Less Than 3 Seconds General Appearance: No Apparent Distress, WD/WN HEENT: Normal ENT Inspection Neck: Non Tender, Supple Respiratory: Chest Non Tender, Lungs Clear, Normal Breath Sounds, No Accessory Muscle Use, No Respiratory Distress Cardiovascular: Regular Rate, Rhythm, No Murmur, Normal Peripheral Pulses Gastrointestinal: Non Tender, Soft Extremity: Normal Inspection, No Pedal Edema Neurologic/Psychiatric: Alert, Oriented x3, No Motor/Sensory Deficits, Normal Mood/Affect Skin: Normal Color, Warm/Dry Results/Procedures Lab Laboratory Tests 06/01/20 03:45 Patient resulted labs reviewed. Imaging: Reviewed Imaging Report Assessment/Plan Assessment and Plan Assess & Plan/Chief Complaint Assessment: Bilateral pulmonary embolism Pneumonia COPD Former smoker, recent cessation DVT, bilateral lower limbs DVT prophylaxis Hypoxia -- resolved Plan: Move patient to 4th floor PT to evaluate mobility Sputum culture pending, preliminary findings of usual upper respiratory sangeetha KCl supplementation Home O2 eval Clinical Quality Measures DVT/VTE Risk/Contraindication: Risk Factor Score Per Nursin RFS Level Per Nursing on Admit: 4+=Very High URMILA PUGA DO 06/02/20 0505: Subjective Subjective/Events-last exam Pt dong much better Transferring to 4th floor CXR no change Vancomycin and Meropenem maintained On room air PT and OT will be ordered Review of Systems General: Fatigue Pulmonary: Dyspnea Objective Exam General Appearance: No Apparent Distress, WD/WN, Chronically ill Respiratory: Lungs Clear, Decreased Breath Sounds Cardiovascular: Regular Rate, Rhythm Neurologic/Psychiatric: Alert, Oriented x3, No Motor/Sensory Deficits, Normal Mood/Affect Assessment/Plan Assessment and Plan Assess & Plan/Chief Complaint Move to 4th Home O2 eval PT OT Supervisory-Addendum Brief Verification & Attestation Participated in pt care: history, MDM, physical Personally performed: exam, history, MDM, supervision of care Care discussed with: Medical Student Procedures: n/a Results interpretation: Verified all documentation Verification and Attestation of Medical Student E/M Service A medical student performed and documented this service in my presence. I reviewed and verified all information documented by the medical student and made modifications to such information, when appropriate. I personally performed the physical exam and medical decision making. Urmila Puga, Jun 02, 2020,05:04 ANNIE MARTINEZ MED STUDENT Jun 01, 2020 11:20 URMILA PUGA DO Jun 02, 2020 05:05
--- NOTE | 2020-06-01 12:27 | Cardiology Progress Note ---
Cardiology SOAP Progress Note Subjective: significantly improved shortness of breath. Objective: I&O/Vital Signs 06/01/20 06/01/20 06/01/20 06/01/20 01:00 01:48 03:07 03:08 Temp 36.6 Pulse 85 78 Resp 18 B/P (MAP) 130/86 Pulse Ox 95 91 96 O2 Delivery Room Air Room Air Room Air 06/01/20 06/01/20 06/01/20 06/01/20 07:00 07:30 08:00 08:25 Temp 35.7 Pulse 76 54 Resp 20 B/P (MAP) 126/84 Pulse Ox 93 92 92 O2 Delivery Room Air Room Air Room Air 06/01/20 09:25 Pulse Ox 94 O2 Delivery Room Air 06/01/20 00:00 Intake Total 830 ml Output Total 1400 ml Balance -570 ml Weight (Pounds): 207 Weight (Calculated Kilograms): 93.549340 Constitutional: appears stated age, apparent distress, well-developed, well- nourished Respiratory: accessory muscle use, respiratory distress Cardiovascular: regular rate-rhythm, tachycardia, S1 and S2 Gastrointestional: soft, audible bowel sounds; No spleenomegaly Extremities: normal range of motion, non-tender, normal inspection, pedal edema; No clubbing, No cyanosis, No significant edema Neurologic/Psychiatric: no motor/sensory deficits, alert, normal mood/affect, oriented x 3, power is 5/5 both on sides Skin: normal color Results/Procedures: Labs Laboratory Tests 05/31/20 12:25: Blood Gas Puncture Site RT RAD, Blood Gas Patient Temperature 36.8, Arterial Blood pH 7.46H, Arterial Blood Partial Pressure CO2 38, Arterial Blood Partial Pressure O2 91, Arterial Blood HCO3 26, Arterial Blood Total CO2 27.5, Arterial Blood Oxygen Saturation 97, Arterial Blood Base Excess 2.6H, Royer Test YES-POS, Blood Gas Ventilator Setting NO, Blood Gas Inspired Oxygen 3 06/01/20 03:45: White Blood Count 9.6, Red Blood Count 4.31, Hemoglobin 13.0L, Hematocrit 40, Mean Corpuscular Volume 94, Mean Corpuscular Hemoglobin 30, Mean Corpuscular Hemoglobin Concent 32, Red Cell Distribution Width 13.6, Platelet Count 266, Mean Platelet Volume 9.8, Immature Granulocyte % (Auto) 1, Neutrophils (%) (Auto) 73, Lymphocytes (%) (Auto) 15, Monocytes (%) (Auto) 6, Eosinophils (%) (Auto) 4, Basophils (%) (Auto) 1, Neutrophils # (Auto) 7.0, Lymphocytes # (Auto) 1.5, Monocytes # (Auto) 0.6, Eosinophils # (Auto) 0.3, Basophils # (Auto) 0.1, Immature Granulocyte # (Auto) 0.1, Sodium Level 136, Potassium Level 3.4L, Chloride Level 103, Carbon Dioxide Level 22, Anion Gap 11, Blood Urea Nitrogen 12, Creatinine 0.70, Estimat Glomerular Filtration Rate > 60, BUN/Creatinine Ratio 17, Glucose Level 99, Calcium Level 8.4L, Corrected Calcium 9.1, Total Bilirubin 0.5, Aspartate Amino Transf (AST/SGOT) 74H, Alanine Aminotransferase (ALT/SGPT) 91H, Alkaline Phosphatase 154H, Total Protein 6.7, Albumin 3.1L 06/01/20 10:30: Vancomycin Level Trough 11.6 Microbiology 05/30/20 Gram Stain, Resulted Pending 05/30/20 Sputum Culture - Preliminary, Resulted Usual upper respiratory sangeetha 05/28/20 Urine Culture - Final, Complete NO GROWTH 05/28/20 Blood Culture - Preliminary, Resulted No growth A/P: Assessment/Dx: Recent pneumonia, Bilateral large PE, RV strain, DVT, PUI Plan: Recent pneumonia, defer to the primary team. Bilateral PE : High dose Eliquis for 7 days followed by Eliquis 5 mg twice a day long-term. 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 Will likely require hypercoagulable workup as an outpatient. Patient also has DVTs. Improving oxygen status. currently on room air. COPD, will require outpatient follow-up with pulmonology. Positive troponin, likely due to acute cor pulmonale. However, I will request nuclear stress testing. negative COVID-19. Dr. Angelo to take over cardiology care tomorrow. Thank you for your consultation. Please call me if you have any questions. Maryse Ramos MD, FACP, FACC, FSCAI, FHRS, CCDS Interventional Cardiology Cardiac Electrophysiology Vascular Medicine and Endovascular Interventions Focused Exam Lactate Level 05/31/20 11:45: Lactic Acid Level 1.06 Time of Focused Exam: 10:05 Valorie RAMOS MD Jun 01, 2020 12:27
[2020-06-01] MEDS: VANCOMYCIN 1500 MG/NS 500 ML IVPB IV SCH ×4 (12:30→23:34)
--- NOTE | 2020-06-01 13:08 | Occ Therapy Progress Note ---
Therapy Progress Note OT orders received and chart reviewed. OT introduced self to pt and educated him on the purpose and benefits of OT. OT visited with pt who indicates he has been up in his room independently, and is having no difficulty taking himself to the bathroom. Pt indicates he is at his PLOF and has no concerns with completing ADLs upon discharge. Based on pt being up in his room independently, and being at PLOF, no skilled OT services are indicated at this time. D/C from OT 1, visit 1149 BEAR HOWARD OT Jun 01, 2020 13:08
--- NOTE | 2020-06-01 13:55 | Physical Therapy Evaluation ---
PT Evaluation-General Medical Diagnosis Admission Date May 28, 2020 at 10:12 Medical Diagnosis: bilateral PE/hypoxia Onset Date: May 28, 2020 Therapy Diagnosis Therapy Diagnosis: debility Height/Weight Height (Feet): 5 Height (Inches): 10.00 Weight (Pounds): 207 Precautions Precautions/Isolations: Standard Precautions Referral Physician: Ruben Reason for Referral: Evaluation/Treatment Medical History Pertinent Medical History: HTN, Smoking Additional Medical History PE's Current History EMS secondary to fall/hypoxia/currently being treated for pneumonia Reviewed History: Yes Social History Home: Single Level Current Living Status: Alone Prior Prior Level of Function SCALE: Activities may be completed with or without assistive devices. 9-Grlaqjycbn-ogbkrbq completes the activity by him/herself with no assistance from a helper. 5-Set-up or Clean-up Assistance-helper sets up or cleans up; patient completes activity. [place] assists only prior to or following the activity. 4-Supervision or Touching Assistance-helper provides verbal cues and/or touching/steadying and/or contact guard assistance as patient completes activity. Assistance may be provided throughout the activity or intermittently. 3-Partial/Moderate Assistance-helper does LESS THAN HALF the effort. [place] lifts, holds or supports trunk or limbs, but provides less than half the effort. 2-Substantial/Maximal Assistance-helper does MORE THAN HALF the effort. [place] lifts or holds trunk or limbs and provides more than half the effort. 6-Vntcaazir-xredas does ALL the effort. Patient does none of the effort to complete the activity. Or, the assistance of 2 or more helpers is required for the patient to complete the activity. If activity was not attempted, code reason: 7-Patient Refused. 9-Not Applicable-not attempted and the patient did not perform the activity before the current illness, exacerbation or injury. 10-Not Attempted due to Environmental Limitations-(lack of equipment, weather restraints, etc.). 88-Not Attempted due to Medical Conditions or Safety Concerns. Bed Mobility: 6 Transfers (B,C,W/C): 6 Gait: 6 Stairs: 6 Indoor Mobility (Ambulation): Independent Stairs: Independent Prior Devices Use: None PT Evaluation-Current Subjective Patient agrees to PT. No c/o except boredom. Objective Patient Orientation: Normal For Age Attachments: IV ROM/Strength ROM Lower Extremities bilateral LE WFL Strength Lower Extremities 5/5 grossly bilateral LE Integumentary/Posture Integumentary refer to nursing notes Bowel Incontinence: No Bladder Incontinence: No Posture WFL Neuromuscular (Tone, Coordination, Reflexes) grossly intact Sensory Vision: Wears Glasses Hearing: Functional Transfers Roll Left to Right (QC): 6 Sit to Lying (QC): 6 Lying to Sitting/Side of Bed(Q: 6 Sit to Stand (QC): 6 Gait Does the Patient Walk?: Yes Mode of Locomotion: Walk Anticipated Mode of Locomotion: Walk Walk 10 feet (QC): 6 Walk 50 ft with 2 Turns(QC): 6 Walk 150 ft (QC): 6 Distance: 250' Gait Assistive Device: None Comments/Gait Description safe and functional with no deviation Balance Sitting Static: Normal Sitting Dynamic: Normal Standing Static: Normal Standing Dynamic: Normal Assessment/Needs 64 y.o. male, is currently at [facility] with all gross motor skills and does not require skilled therapy intervention. Rehab Potential: Fair PT Plan Treatment/Plan Treatment Plan: Discontinue PT, goals met Treatment Duration: Jun 01, 2020 Frequency: 1 time per week Estimated Hrs Per Day: .25 hour per day Patient and/or Family Agrees t: Yes Time/GCodes Time In: 1312 Time Out: 1325 Total Billed Treatment Time: 13 Total Billed Treatment 1 visit EVLowC 13 min LETTY HAYWOOD PT Jun 01, 2020 13:55
--- NOTE | 2020-06-01 17:45 | NUR ---
THIS NURSE GAVE REPORT TO RAE REID ON FOURTH FLOOR. PT TAKEN TO NEW ROOM VIA WHEELCHAIR WITH BELONGINGS. PT SITTING COMFORTABLY IN CHAIR AND VOICES NO COMPLAINTS. MINING TEACHER NOTIFIED PT IS HERE.
[2020-06-01] MEDS ORDERED: WATER (STERILE) FOR INJECTION 10 ML ONE (20:05)
[2020-06-01] MEDS ORDERED: MEROPENEM 500 MG VIAL (MERREM) IV ONE (20:05)
[2020-06-01] MEDS: HYDROcodone/APAP 5 MG/325 MG (LORTAB) TAB PO PRN (22:15)
--- NOTE | 2020-06-01 23:50 | NUR ---
Notified Dr. Miranda that pt blood pressure is 184/88 and it has been in that range since 1999. Received order for one time Norvasc 5mg PO and monitor. Will follow orders.
[2020-06-02] MEDS ORDERED: amLODIPine 5 MG (NORVASC) TAB PO ONE
[2020-06-02] MEDS ORDERED: MEROPENEM 500 MG VIAL (MERREM) IV ONE ×2 (01:29→06:50)
[2020-06-02] MEDS ORDERED: WATER (STERILE) FOR INJECTION 10 ML ONE ×2 (01:29→06:50)
[2020-06-02] MEDS: MEROPENEM 500 MG/SWFI 10 ML IV PUSH IV SCH ×4 (01:36→07:02)
[2020-06-02] MEDS: RT-ALBUTEROL INHALER HFA (VENTOLIN HFA) 18 GM IH SCH ×3 (01:52→15:53)
[2020-06-02 05:13] LABS: BASOPHILS # (AUTO) 0.1 10^3/uL (0.0-0.1); BASOPHILS % (AUTO) 1 % (0-10); EOSINOPHILS # (AUTO) 0.4 10^3/uL (0.0-0.3); EOSINOPHILS % (AUTO) 6 % (0-10); HEMATOCRIT 40 % (40-54); HEMOGLOBIN 13.1 g/dL (13.3-17.7); LYMPHOCYTES # (AUTO) 1.1 10^3/uL (1.0-4.0); LYMPHOCYTES % (AUTO) 15 % (12-44); MEAN CORPUSCULAR HEMOGLOBIN 30 pg (25-34); MEAN CORPUSCULAR HGB CONC 33 g/dL (32-36); MEAN CORPUSCULAR VOLUME 92 fL (80-99); MEAN PLATELET VOLUME 9.8 fL (9.0-12.2); MONOCYTES # (AUTO) 0.7 10^3/uL (0.0-1.0); MONOCYTES % (AUTO) 9 % (0-12); NEUTROPHILS % (AUTO) 68 % (42-75); PLATELET COUNT 305 10^3/uL (130-400); WHITE BLOOD COUNT 7.3 10^3/uL (4.3-11.0)
[2020-06-02 05:18] LABS: ALBUMIN 3.2 GM/DL (3.2-4.5); CHLORIDE 103 MMOL/L (98-107); POTASSIUM 3.9 MMOL/L (3.6-5.0); SODIUM 138 MMOL/L (135-145)
[2020-06-02 05:19] LABS: CALCIUM 8.5 MG/DL (8.5-10.1)
[2020-06-02 05:20] LABS: GLUCOSE 87 MG/DL (70-105); TOTAL PROTEIN 6.8 GM/DL (6.4-8.2)
[2020-06-02 05:21] LABS: CARBON DIOXIDE 24 MMOL/L (21-32)
[2020-06-02 05:22] LABS: BILIRUBIN,TOTAL 0.4 MG/DL (0.1-1.0)
[2020-06-02 05:24] LABS: ALKALINE PHOSPHATASE 153 U/L (40-136); GFR ESTIMATED > 60
[2020-06-02 05:25] LABS: BUN/CREATININE RATIO 11
[2020-06-02 05:27] LABS: ALANINE AMINOTRANSFERASE 99 U/L (0-55)
[2020-06-02] MEDS ORDERED: KCL 10 MEQ TAB (MICRO K) PO SCH (07:00)
[2020-06-02] MEDS: APIXABAN 5 MG (ELIQUIS) TABLET PO SCH (09:00)
--- NOTE | 2020-06-02 09:46 | Cardiology Progress Note ---
Subjective Date Seen by Provider: Jun 02, 2020 Time Seen by Provider: 09:43 Subjective/Events-last exam Patient is sitting up at bedside, reports dyspnea improving. Denies any chest pain. Focused Exam Lactate Level 05/31/20 11:45: Lactic Acid Level 1.06 Time of Focused Exam: 10:05 Objective-Cardiology Exam Last Set of Vital Signs Vital Signs 05/31/20 06/02/20 20:20 08:00 Temp 36.6 Pulse 86 Resp 20 B/P (MAP) 168/86 Pulse Ox 94 O2 Delivery Room Air O2 Flow Rate 3.00 3.00 Capillary Refill : Less Than 3 Seconds I&O Intake and Output 06/02/20 00:00 Intake Total 2240 ml Output Total 1900 ml Balance 340 ml Intake Oral 2240 ml Output Urine Total 1900 ml # Voids 9 # Bowel Movements 2 General: Alert, Oriented X3, Cooperative HEENT: Atraumatic, PERRLA Neck: Supple, No JVD, No Thyromegaly Lungs: Other (diminished breath sounds bibasilarly) Heart: Regular Rate Abdomen: Normal Bowel Sounds, Soft Extremities: No Clubbing, No Cyanosis, No Edema, Normal Pulses, No Tenderness/Swelling Skin: No Rashes, No Breakdown, No Significant Lesion Neuro: Normal Gait, Normal Speech, Strength at 5/5 X4 Ext, Normal Tone, Sensation Intact Psych/Mental Status: Mental Status NL, Mood NL Results Lab Laboratory Tests 06/02/20 04:30 A/P-Cardiology Admission Diagnosis Bilat PE DVT Positive troponin HLP Assessment/Plan Bilateral PE : High dose Eliquis for 7 days followed by Eliquis 5 mg twice a day long-term. 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 Will likely require hypercoagulable workup as an outpatient. Patient also has DVTs. Improving oxygen status, currently on room air. COPD, will require outpatient follow-up with pulmonology. Pneumonia, management per primary care. Positive troponin, likely due to acute cor pulmonale. Discussed the possibility of stress test, patient is refusing, asking to have it done as outpatient. negative COVID-19. HLP- monitory lipids. Patient was seen and evaluated with Juana, examination performed, management plan was discussed, agree with the current scribed note, I made few changes to the note using Italic font Patient has been refusing to have any testing done, planning to follow-up as an outpatient Clinical Quality Measures DVT/VTE Risk/Contraindication: Risk Factor Score Per Nursin RFS Level Per Nursing on Admit: 4+=Very High JUANA HEART Jun 02, 2020 09:46 AICHA SCHULTZ MD Jun 02, 2020 11:54
[2020-06-02] MEDS ORDERED: CEFD300C3 PO (10:34)
[2020-06-02] MEDS ORDERED: ACHD5005 PO (10:34)
[2020-06-02] MEDS ORDERED: APIX5TAB PO (10:34)
--- NOTE | 2020-06-02 10:35 | Discharge Summary ---
Discharge Summary Hospital Course Was the Problem List Reviewed?: Yes Problems/Dx: (1) Bilateral pulmonary embolism Status: Acute (2) DVT, bilateral lower limbs (3) DVT prophylaxis (4) Hypoxia Status: Acute Hospital Course Date of Admission: May 28, 2020 at 10:12 Admission Diagnosis : Family Physician/Provider: Viral Rowland Date of Discharge: 06/02/20 Discharge Diagnosis: bilateral PE, bilateral DVT, PNA Hospital Course: Hospital course: Pt had a lengthy hospital course when he was admitted for chest pain, found to have B/L pulmonary emboli with B/L DVTs. He was placed on Heparin drip, some very mild right heart strain on echocardiogram but did not require thrombolytics through a catheterization for procedure. He was placed on Eliquis 10 Mg BID for seven days and them 5 Mg BID indefinitely since this is his second episode of thrombosis. He did not require oxygen. Bacterial pneumonia was treated with wale ropriate broad-spectrum antibiotics that was narrowed at time of discharge and he was deemed stable for follow-up for cardiology stress test evaluation. Labs and Pending Lab Test: Laboratory Tests 06/02/20 04:30: White Blood Count 7.3, Red Blood Count 4.36, Hemoglobin 13.1L, Hematocrit 40, Mean Corpuscular Volume 92, Mean Corpuscular Hemoglobin 30, Mean Corpuscular Hemoglobin Concent 33, Red Cell Distribution Width 13.6, Platelet Count 305, Mean Platelet Volume 9.8, Immature Granulocyte % (Auto) 1, Neutrophils (%) (Auto) 68, Lymphocytes (%) (Auto) 15, Monocytes (%) (Auto) 9, Eosinophils (%) (Auto) 6, Basophils (%) (Auto) 1, Neutrophils # (Auto) 5.0, Lymphocytes # (Auto) 1.1, Monocytes # (Auto) 0.7, Eosinophils # (Auto) 0.4H, Basophils # (Auto) 0.1, Immature Granulocyte # (Auto) 0.1, Sodium Level 138, Potassium Level 3.9, Chloride Level 103, Carbon Dioxide Level 24, Anion Gap 11, Blood Urea Nitrogen 8, Creatinine 0.70, Estimat Glomerular Filtration Rate > 60, BUN/Creatinine Ratio 11, Glucose Level 87, Calcium Level 8.5, Corrected Calcium 9.1, Total Bilirubin 0.4, Aspartate Amino Transf (AST/SGOT) 76H, Alanine Aminotransferase (ALT/SGPT) 99H, Alkaline Phosphatase 153H, Total Protein 6.8, Albumin 3.2 Microbiology 05/31/20 Blood Culture - Preliminary, Resulted No growth 05/30/20 Gram Stain - Final, Resulted 05/30/20 Sputum Culture - Preliminary, Resulted Usual upper respiratory sangeetha 05/28/20 Urine Culture - Final, Complete NO GROWTH Home Meds Active Cefdinir 300 Mg Capsule 300 Mg PO BID Hydrocodone-Acetamin 5-325 mg (Hydrocodone/Acetaminophen) 1 Each Tablet 1 Tab PO Q4H PRN Eliquis (Apixaban) 5 Mg Tablet 5 Mg PO BID start after 3 weeks of 10mg PO BID Eliquis (Apixaban) 5 Mg Tablet 10 Mg PO BID Assessment/Pt Instructions [facility] 1 week Discharge Planning: <30 minutes discharge planning Discharge Physical Examination Vital Signs Vital Signs Date Time Temp Pulse Resp B/P (MAP) Pulse Ox O2 Delivery O2 Flow Rate FiO2 06/02/20 08:00 36.6 86 20 168/86 94 Room Air 05/31/20 20:20 3.00 3.00 General Appearance: No Apparent Distress, WD/WN, Chronically ill Respiratory: Lungs Clear Cardiovascular: Regular Rate, Rhythm Neurologic/Psychiatric: Alert, Oriented x3, No Motor/Sensory Deficits, Normal Mood/Affect Allergies: Coded Allergies: Penicillins (Unverified Adverse Reaction, Severe, COMA, 01/28/11) erythromycin base (Unverified Adverse Reaction, Intermediate, TONGUE SWELLING, 01/28/11) Sulfa (Sulfonamide Antibiotics) (Unverified Adverse Reaction, Mild, HIVES, 01/28/11) Discharge Summary Date of Admission May 28, 2020 at 10:12 Date of Discharge Discharge Date: Jun 02, 2020 Admission Diagnosis Assessment: SYncope Hypoxia PE DVT/PE 1/5 years ago completed 6 months of OAC then stopped SMoker HTN Plan: Heparin Cardiiology consultation Discharge Diagnosis Move to 4th Home O2 eval PT OT (1) Bilateral pulmonary embolism Status: Acute (2) DVT, bilateral lower limbs (3) DVT prophylaxis (4) Hypoxia Status: Acute Clinical Quality Measures DVT/VTE Risk/Contraindication: Risk Factor Score Per Nursin RFS Level Per Nursing on Admit: 4+=Very High ERIKA PUGA DO Jun 02, 2020 10:35
--- NOTE | 2020-06-02 10:49 | Progress Note ---
ANNIE MARTINEZ MED STUDENT 06/02/20 1049: Progress Note Patient is a 64 yo male patient who presented to the ED via EMS after a syncopal episode in the shower with hypoxic and cyanosis in the lower body. Per EMS, he had O2 saturation in 70s and respiratory distress, which improved with 15L via nonrebreather. Three weeks prior, he was being treated for pneumonia. He had stopped smoking when he developed pneumonia. COVID and Influenza swabs were negative. On exam in ED, D-dimer was markedly elevated and CTA revealed bilateral pulmonary emboli. ECHO showed right heart strain. He has a history of DVT in his past and previously completed 6 months of oral anticoagulant therapy. He was started on IV vancomycin and meropenem for infection control. He was able to be weened off oxygen supplementation therapy over the course of his stay. He was started on Eliquis prior to discharge and will be on anticoagulation prison. Stress test is recommended, but this can be done as an outpatient. URMILA PUGA DO 06/03/20 0659: Supervisory-Addendum Brief Verification & Attestation Participated in pt care: history, MDM, physical Personally performed: exam, history, MDM, supervision of care Care discussed with: Medical Student Procedures: n/a Results interpretation: Verified all documentation Verification and Attestation of Medical Student E/M Service A medical student performed and documented this service in my presence. I reviewed and verified all information documented by the medical student and made modifications to such information, when appropriate. I personally performed the physical exam and medical decision making. Urmila Puga Jun 03, 2020,06:59 ANNIE MARTINEZ MED STUDENT Jun 02, 2020 10:49 URMILA PUGA DO Jun 03, 2020 06:59
[2020-06-02] MEDS: VANCOMYCIN 1500 MG/NS 500 ML IVPB IV SCH ×2 (12:10)
[2020-06-02 16:05] VITALS: BP 150/80
--- NOTE | 2020-06-02 17:37 | NUR ---
CM/SS discharge The patient discharged home and continue on Eliquis. This sw and FRANKLIN Dey were notified by the nurse that patient needed assistance to afford the medication. CM/SS provided the patient with a Medication Assistance Program application, 30 day free, and 10 dollar co-pay card. The patient has applied for Medicaid and believes he will be approved by the time for 30 days runs out. No further needs at this time.
[2020-06-05] MEDS ORDERED: APIXABAN 5 MG (ELIQUIS) TABLET PO SCH (09:00)
== END 2020-06-02 15:30 | disposition home or self-care (01) | DRG 175 ==
LOC: EDUNIT# 06:39 → ER 06:43 → CSD 10:12 → 4TH 06-01 17:52
PROVIDERS: ADMIT Internal Medicine; ATTEND Internal Medicine
DX: I26.09 Other pulmonary embolism with acute cor pulmonale (principal); J15.9 Unspecified bacterial pneumonia; I82.411 Acute embolism and thrombosis of right femoral vein; I82.432 Acute embolism and thrombosis of left popliteal vein; I82.442 Acute embolism and thrombosis of left tibial vein; I82.890 Acute embolism and thrombosis of other specified veins; R06.03 Acute respiratory distress; R09.02 Hypoxemia; Z20.828 Contact with and (suspected) exposure to other viral communicable diseases; R55 Syncope and collapse; R23.0 Cyanosis; I10 Essential (primary) hypertension; Z87.891 Personal history of nicotine dependence; E78.5 Hyperlipidemia, unspecified
CPT/HCPCS: 36415; 71045; 71275; 80053; 80202; 81000; 82805; 83605; 83615; 83880; 84145; 84484; 85007; 85025; 85027; 85379; 85610; 85730; 86141; 87040; 87070; 87088; 87205; 87635; 87804; 93005; 93308; 93970; 94640; 94664; 94760; 96361; 96365; 96366; 96375

== ENCOUNTER 2020-06-20 00:05 | Emergency (ER) | payer MEDICARE, OTHER ==
[~2020-06-20] VITALS: Ht 178 cm; Wt 90.9 kg
[~2020-06-20 00:05] MED LIST changes: +ACHD5005 PO; +APIX5TAB PO; +CEFD300C3 PO
[2020-06-20] MEDS ORDERED: ATROPINE INJECTION 1 MG/10 ML SYR (ABBOTT) INJ ONE (00:09)
[2020-06-20] MEDS ORDERED: CATHETER FLUSH 10 ML SYR IV ONE (00:09)
[2020-06-20] MEDS ORDERED: EPINEPHrine 0.1 MG/ML 10 ML (HOSPIRA) SYR IJ ONE (00:09)
[2020-06-20] MEDS ORDERED: SODIUM BICARB 8.4% 50 MEQ/50 ML (ABBOTT) SYR INJ ONE (00:09)
--- NOTE | 2020-06-20 00:30 | NUR ---
hob 30deg. ice packs to groin/eyes/axilla.
--- NOTE | 2020-06-20 03:53 | NUR ---
called [facility] for update. no plan at this time for donation/morturary. randal with [facility] reports family has until noon to decide about donation/morturary. she states she will call [facility] to see if they can cool body et. call back.
[2020-06-20 05:47] VITALS: BP 0/0
--- NOTE | 2020-06-20 06:12 | ED CPR ---
HPI-CPR General Chief Complaint: Code Blue Stated Complaint: CODE BLUE Nursing Triage Note: brought in by [facility]ms radha forte. ems paged for soa, reports pt coded at 2350 06/19/2020. Sepsis Screen: No Definite Risk Source of Information: EMS, Old Records (ALL PAST MEDICAL HISTORY IS FROM OLD CHART. ) History of Present Illness Date Seen by Provider: Jun 20, 2020 Time Seen by Provider: 00:07 Initial Comments PT ARRIVES VIA EMS FROM HOME EMS WAS CALLED FOR PT HAVING DIFFICULTY BREATHING. EMS REPORT THAT PT WAS "HYPERVENTILATING" ON ARRIVAL, WITH INTIAL BP OF 78/?, HR 50, UNABLE TO OBTAIN O2 SAT. EMS CALLED AT 2320 PT "PASSED OUT" ENROUTE AT 2350, BECAME BRADYCARDIC, THEN BECAME PULSELESS AND WAS APNEIC. CPR INITIATED WENT INTO V-FIB AND WAS SHOCKED X 1, THEN INTO P.E.A. AND WAS GIVEN EPINEPHRINE X 3 BY EMS PRIOR TO ARRIVAL EMS HAVE PLACED AN "I-JEL" AIRWAY, AND I/O ACCESS IN LEFT LOWER LEG. ON ARRIVAL, PT IS STILL IN P.E.A. AND CPR WAS CONTINUED. SEE RADHA FORTE NOTES FOR DETAILS. WAS LATER ABLE TO TALK WITH PT'S EX-, GRETCHEN LADD, WHO LIVES IN THE HOUSE WITH THE PATIENT, AND IS WHO CALLED EMS. SHE STATES THAT HE HAS TOLD HER MULTIPLE TIMES ALL DAY TODAY THAT HE WAS GOING TO , AND HAS BEEN SHORT OF BREATH ALL DAY TODAY. SHE STATES TONIGHT HE "HAD A PANIC ATTACK AND COULDN'T BREATHE" SO SHE CALLED EMS. SHE ALSO STATED LATER THAT PT WAS RECENTLY ADMITTED TO THIS HOSPITAL FOR PNEUMONIA WITH HISTORY OF COPD--WAS HYPOXIC WITH O2 SATS IN 70'S ON ARRIVAL AT THAT TIME. ON FURTHER INVESTIGATION, PT WAS ADMITTED 05/28/20 TO 06/02/20 FOR PNEUMONIA, W ITH BILATERAL DVT'S AND BILATERAL P.E.'S. RAPID COVID TESTING WAS NEGATIVE AT THAT TIME. PT WAS DISMISSED ON CEFDINIR AND ELIQUIS. IS UNKNOWN IF HE HAD MISSED ANY DOSES PCP: [facility] Allergies and Home Medications Allergies Coded Allergies: No Allergy Information Available (Unverified , 06/20/20) Patient Home Medication List Home Medication List Reviewed: Yes Review of Systems Review of Systems Constitutional: other (UNABLE TO OBTAIN) Respiratory: See HPI Past Nztoktc-Svbdvo-Cyrcsp Hx Past Med/Social Hx: Reviewed and Corrections made Patient Social History Alcohol Use: Denies Use Recreational Drug Use: No Smoking Status: Current Everyday Smoker Type Used: Cigarettes Recent Foreign Travel: No Contact w/Someone Who Travel: No Recent Infectious Disease Expo: No Recent Hopitalizations: No Immunizations Up To Date Tetanus Booster (TDap): Unknown Seasonal Allergies Seasonal Allergies: No Past Medical History Surgeries: Yes (SHOULDER) Orthopedic Respiratory: Yes (ADMITTED 05/28 WITH PNEUMONIA, BILAT P.E.'S AND BILAT DVT'S ) Pneumonia (MULTIPLE EPISODES), Pulmonary Embolism Cardiac: Yes Deep Vein Thrombosis, Hypertension Neurological: No Genitourinary: No Gastrointestinal: No Musculoskeletal: Yes (SHOULDER SURGERY) Endocrine: No HEENT: No Cancer: No Psychosocial: No Integumentary: No Blood Disorders: No Physical Exam Vital Signs Vital Signs - First Documented 06/20/20 06/20/20 00:06 05:47 Temp 36.0 Pulse 136 Resp 14 B/P (MAP) 201/55 (103) Pulse Ox 0 O2 Delivery Ambu Bag Capillary Refill : Greater Than 3 Seconds Height, Weight, BMI Height: '" Weight: lbs. oz. kg; 28.00 BMI Method: General Appearance: Other (PT IS OBTUNDED, CPR IN PROGRESS, AND BEING BAGGED WITH "I-JEL" TUBE IN PLACE. ) Respiratory: Other (NO SPONTANEOUS RESPIRATORY EFFORT, PT IS BEING BAGGED VIA "I-JEL" TUBE, AND BREATH SOUNDS ARE CLEAR AND EQUAL. ) Cardiovascular: Other (PULSELESS) Skin: Cool, Pallor Progress/Results/Core Measures Results/Orders Lab Results Laboratory Tests Test 06/20/20 00:25 Range/Units Coronavirus 2019 (MIKAEL) Negative Negative My Orders Orders - PIERO OLEARY DO Coronavirus Sars-Cov-2 So 2019 (06/20/20 00:28) Covid 19 Inhouse Test (06/20/20 00:28) Vital Signs/I&O 06/20/20 06/20/20 00:06 05:47 Temp 36.0 Pulse 136 0 Resp 14 0 B/P (MAP) 201/55 (103) 0/0 Pulse Ox 0 O2 Delivery Ambu Bag Blood Pressure Mean: 103 Critical Care Note Critical Care Start Time: 00:07 Stop Time: 00:22 Date of : Jun 20, 2020 Time of : 00:22 Progress CPR WAS CONTINUED PT CONTINUED TO BE BAGGED WITH "I-JEL" TUBE IN PLACE, WITH CLEAR AND EQUAL BREATH SOUNDS WITH BAGGING. PT RECEIVED EPINEPHRINE X 3 BY EMS PRIOR TO ARRIVAL PT WAS GIVEN AN ADDITIONAL EPINEPHRINE X 5 IN ER GIVEN ATROPINE X 3 IN ER BICARB X 1 PT IN AND OUT OF PEA AND ASYSTOLE NO RETURN OF SPONTANEOUS RESPIRATIONS OR PULSE AT ANY TIME CODE CALLED AT 0022. Departure Communication (Admissions) Family Conversation NO FAMILY HAS CALLED FOR PT OR CAME TO ER 0055--CALLED NUMBER LISTED FOR PT--NUMBER DISCONNECTED. 0119--CALLED ANOTHER CONTACT NUMBER--SPOKE WITH GRETCHEN LADD ( FEMALE) STATES SHE IS PT'S EX-, BUT STILL LIVES IN THE SAME HOUSE WITH THE PT AND CALLED THE AMBULANCE, AND ADDITIONAL RECENT HISTORY OBTAINED BY HER. INFORMED HER OF PT'S 0150--PT'S SON, IMER LADD, CALLED. INFORMED HIM OF PT'S . HE REPORTS THAT HE LIVES IN [place], ANOTHER BROTHER LIVES IN [place] AND A SISTER LIVES IN [place]. QUALITY CONTROL TESTER HAS CONTACTED [employer], AND PT IS A CANDIDATE FOR [employer] DONATION. 0540--[employer] HERE TO TAKE PT. 0638--SPOKE WITH DR. NEAL, BID MANAGER FOR [facility] AND INFORMED HER OF PT'S . Impression Primary Impression: Cardiopulmonary arrest Additional Impressions: RECENT BILATERAL PULMONARY EMBOLI AND BILATERAL DVT'S RECENT PNEUMONIA Disposition: 20 Condition: Departure-Patient Inst. Referrals: ALFRED JERONIMO (Family) Primary Care Physician [facility]/ (PCP) Primary Care Physician PIERO OLEARY DO Jun 20, 2020 06:12
--- NOTE | 2020-06-22 09:09 | NUR ---
Notified significant other of positive COVID test.
== END 2020-06-20 05:49 | disposition expired ==
LOC: MERGE 00:08 → EDBD 00:08 → ER 00:08
DX: I46.9 Cardiac arrest, cause unspecified (principal); J18.9 Pneumonia, unspecified organism; F17.210 Nicotine dependence, cigarettes, uncomplicated; Z20.828 Contact with and (suspected) exposure to other viral communicable diseases
CPT/HCPCS: 36680; 99291; U0002; 87635